=== PATIENT | male | born 1935 | race Caucasian/White ===

== ENCOUNTER 2016-09-12 16:53 | Inpatient (IN) | payer MEDICARE ==
[2016-09-12] VITALS (10 sets, daily range): BP systolic 88–108; BP diastolic 62–83
[~2016-09-12] VITALS: Ht 182.9 cm; Wt 65.8 kg
[~2016-09-12 16:53] MED LIST: ALFU10TA PO; ALFUZOSIN HCL PO; ASPI-983 PO; ASPI325T32 PO; BENZ-13 PO; BETH25TA PO; DICL100G13 TOP; DILT180C84 PO; DILT240C90 PO; DOXA4TAB2 PO; DXZS2T PO; DXZS4T PO; FRSM40T PO; FURO-125 PO; FURO40TA4 PO; Glycerin PR; HALO2TAB12 PO; KCL20TCR PO; MELA3TAB PO; METO-274 PO; Metoprolol Succinate PO; NAPR220C11 PO; NFD60TCR; POLY17PO6 PO; POTA-51 PO; POTA20TA8 PO; Polyethylene Glycol PO; RIVA20TA PO; RIVA20TA2 PO; WARF2TAB PO; WARF5TAB58 PO
--- OUTSIDE RECORDS SUMMARY | 2016-09-12 16:57 | XMS REPORT | Continuity of Care Document ---
Author Author [facility] Organization [facility] Address Unknown Phone Unavailable Care Team Providers Care Sand Operator Name Role Phone THA WALSH MD PCP Insurance Providers Payer Name Policy Number Subscriber Name Relationship Wps Medicare [id number] Lara Buckley 19 Self / Same As Patient Blue Cross [facility] Supp [id number] Lara Buckley Self / Same As Patient Advance Directives Directive Response Recorded Date/Time Advance Directives Yes 03/19/16 3:00pm Health Care Power of Ethylene Plant Helper Yes 03/19/16 3:00pm Organ Donor No 03/19/16 3:00pm Resuscitation Status Full Code 03/19/16 3:00pm Chief Complaint and Reason for Visit Chief Complaint Respiratory Problems Reason for Visit atrial fibrillation recurrent pleural effusion, right Problems Active Problems Medical Problem Onset Date Status Anticoagulant long-term use Unknown Chronic Atrial fibrillation Unknown Acute Atrial fibrillation with rapid ventricular response Unknown Acute BPH (benign prostatic hypertrophy) 03/22/2015 Chronic Hypertension Unknown Chronic Noncompliance with medication treatment due to underuse of medication Unknown Acute Pleural effusion, right Unknown Acute Subtherapeutic international normalized ratio (INR) Unknown Chronic UTI (urinary tract infection) Unknown Acute Urinary incontinence Unknown Acute Urinary incontinence Unknown Acute Urinary retention with incomplete bladder emptying Unknown Acute Urinary tract infectious disease Unknown Acute Volume overload Unknown Resolved Weakness Unknown Acute Medications Current Home Medications Medication Dose Units Route Directions Days/Qty Instructions Start Date Rivaroxaban 20 Mg 20 Mg Oral Daily@1700 30 03/11/16 Diltiazem Hcl 240 Mg 240 Mg Oral Daily 30 03/11/16 Benzonatate 100 Mg 100 Mg Oral Twice A Day as needed for Cough 20 03/28 Furosemide 20 Mg 20 Mg Oral Daily 03/19/16 Past Home Medications Medication Directions Ordered Status Nifedipine 60 Mg Tab, 11/16/06 Discontinued Naproxen Sodium 220 Mg Capsule, 220 Mg Oral Daily as needed for Pain Discontinued [Alfuzosin Hcl] 10 Mg Tab, 10 Mg Oral Daily@18 03/22/15 Discontinued Diclofenac Sod 100 Gm Gel, 0 Gm Topically Give Every 6 Hr On Schedule as needed for Pain 03/22/15 Discontinued Doxazosin Mesylate 2 Mg Tab, 2 Mg Oral Every 6 Hours as needed for Systolic Blood Pressure >170 03/22/15 Discontinued Doxazosin Mesylate 4 Mg Tab, 4 Mg Oral Bedtime 03/22/15 Discontinued Furosemide 40 Mg Tab, 40 Mg Oral Daily 03/22/15 Discontinued [Glycerin] 1 Ea Supp, 1 Ea Rectal 0730 03/22/15 Discontinued Haloperidol 2 Mg Tablet, 3 Mg Oral Bedtime as needed for Insomnia 03/22/15 Discontinued [Metoprolol Succinate] 100 Mg Tab, 100 Mg Oral Daily 03/22/15 Discontinued [Polyethylene Glycol] 17 Gm Pack, 17 Gm Oral Bedtime 03/22/15 Discontinued Potassium Chloride 20 Meq Tab, 40 Meq Oral Daily@0700 03/22/15 Discontinued Rivaroxaban 20 Mg Tablet, 20 Mg Oral Daily@1700 03/22/15 Discontinued Warfarin Sodium 5 Mg Tablet, 5 Mg Oral Daily 04/08/15 Discontinued Doxazosin Mesylate 4 Mg Tablet, 4 Mg Oral Bedtime 04/29/15 Discontinued Furosemide 40 Mg Tablet, 40 Mg Oral Daily 04/29/15 Discontinued Metoprolol Succinate 100 Mg Tab.er.24h, 100 Mg Oral Daily 04/29/15 Discontinued Polyethylene Glycol 3350 17 Gm Powd.pack, 17 Gm Oral Daily as needed for Constipation 04/29/15 Discontinued Potassium Chloride 20 Meq Tablet.er, 40 Meq Oral Daily @ 0704/29/15 Discontinued Bethanechol Chloride 25 Mg Tablet, 25 Mg Oral Four Times Daily 04/29/15 Discontinued Alfuzosin Hcl 10 Mg Tab.sr.24h, 10 Mg Oral Daily @ 1800 04/29/15 Discontinued Warfarin Sodium 2 Mg Tablet, 4 Mg Oral Daily@1800 05/03/15 Discontinued Diltiazem Hcl 180 Mg Cap.er.24h, 180 Mg Oral Daily 05/03/15 Discontinued Aspirin 81 Mg Tablet.dr 81 Mg Oral Bedtime 03/03/16 Discontinued Social History Social History Problem Response Recorded Date/Time Alcohol Use Denies Use 03/19/2016 3:00pm Recreational Drug Use No 03/19/2016 3:00pm Recent Foreign Travel No 03/19/2016 3:00pm Recent Infectious Disease Exposure No 03/19/2016 3:00pm Hospitalization with Isolation Denies 03/19/2016 3:00pm Sexually Transmitted Disease No 03/19/2016 3:00pm HIV/AIDS No 03/19/2016 3:00pm Smoking Status Former Smoker 03/19/2016 3:00pm Do you dip or chew tobacco? No 03/19/2016 3:00pm Query Response Start Date Stop Date Smoking Status Former Smoker 09/13/1984 Hospital Discharge Instructions No hospital discharge instructions. Plan of Care Discharge Date 03/19/16 5:35pm Disposition 01 HOME, SELF-CARE Condition at Discharge Stable/Unchanged Instructions/Education Provided Pleural Effusion (ED) Prescriptions See Medication Section Referrals THA WALSH MD - Primary Care Physician Additional Instructions/Education All discharge instructions reviewed with patient and/or family. Voiced understanding. Take Tessalon pearls twice daily to control cough Make appointment for follow-up at Dr. Walsh's office next week Take Lasix 20 mg daily Functional Status No functional status results. Allergies, Adverse Reactions, Alerts Allergen Type Severity Reaction Status Last Updated NKANo Known Allergies Allergy Unknown Active 11/16/06 Immunizations Name Given Type Hepatitis A No Historical Hepatitis B No Historical Tetanus Booster (TDap) More than 5yrs Historical Vital Signs Acute Vital Signs Vital Response Date/Time Temperature (Fahrenheit) 99.4 degrees F (97.6 - 99.5) 03/19/2016 5:35pm Temperature (Calculated Celsius) 37.98077 degrees C (36.4 - 37.5) 03/19/2016 5:35pm Temperature Source Temporal 03/19/2016 5:35pm Pulse Rate (adult) 80 bpm (60 - 90) 03/19/2016 5:35pm Respiratory Rate 16 bpm (12 - 24) 03/19/2016 5:35pm O2 Sat by Pulse Oximetry 100 % (88 - 100) 03/19/2016 5:35pm Blood Pressure 138/89 mm Hg 03/19/2016 5:35pm Blood Pressure Mean 112 mm Hg 03/19/2016 3:00pm Pain Numeric Pain Scale 0-No Pain 03/19/2016 5:35pm Pain Intensity 0 03/09/2016 4:08pm Height (Feet) 6 feet 03/19/2016 3:00pm Height (Inches) 0.00 inches 03/19/2016 3:00pm Height (Calculated Centimeters) 182.712611 cm 03/19/2016 3:00pm Weight (Pounds) 169 pounds 03/19/2016 3:00pm Weight (Ounces) 0.8 oz 03/19/2016 3:00pm Weight (Calculated Grams) 74608.791 gm 03/19/2016 3:00pm Weight (Calculated Kilograms) 76.856818 kilograms 03/19/2016 3:00pm Calculated BMI 25.5 03/19/2016 3:00pm Results Laboratory Results Test Name Result Units Flags Reference Collection Date/Time Result Date/ Time Comments White Blood Count 6.9 10^3/uL 4.3-11.0 03/06/2016 5:43am 03/06/2016 6: 06am Red Blood Count 4.09 10^6/uL L 4.35-5.85 03/06/2016 5:43am 03/06/2016 6: 06am Hemoglobin 13.9 G/DL 13.3-17.7 03/06/2016 5:43am 03/06/2016 6:06am Hematocrit 39 % L 40-54 03/06/2016 5:43am 03/06/2016 6:06am Mean Corpuscular Volume 95 FL 80-99 03/06/2016 5:43am 03/06/2016 6: 06am Mean Corpuscular Hemoglobin 34 PG 25-34 03/06/2016 5:43am 03/06/2016 6: 06am Mean Corpuscular Hemoglobin Concent 36 G/DL 32-36 03/06/2016 5:43am 6:06am Red Cell Distribution Width 12.8 % 10.0-14.5 03/06/2016 5:43am 2015 6:06am Platelet Count 145 10^3/uL 130-400 03/06/2016 5:43am 03/06/2016 6:06am Mean Platelet Volume 10.6 FL H 7.4-10.4 03/06/2016 5:4303/06/2016 6: 06am Neutrophils (%) (Auto) 80 % H 42-75 03/06/2016 5:4303/06/2016 6:06am Lymphocytes (%) (Auto) 12 % 12-44 03/06/2016 5:4303/06/2016 6:06am Monocytes (%) (Auto) 8 % 0-12 03/06/2016 5:4303/06/2016 6:06am Eosinophils (%) (Auto) 1 % 0-10 03/06/2016 5:4303/06/2016 6:06am Basophils (%) (Auto) 0 % 0-10 03/06/2016 5:4303/06/2016 6:06am Neutrophils # (Auto) 5.6 X 10^3 1.8-7.8 03/06/2016 5:4303/06/2016 6: 06am Lymphocytes # (Auto) 0.8 X 10^3 L 1.0-4.0 03/06/2016 5:4303/06/2016 6: 06am Monocytes # (Auto) 0.5 X 10^3 0.0-1.0 03/06/2016 5:4303/06/2016 6: 06am Eosinophils # (Auto) 0.1 10^3/uL 0.0-0.3 03/06/2016 5:4303/06/2016 6 :06am Basophils # (Auto) 0.0 10^3/uL 0.0-0.1 03/06/2016 5:4303/06/2016 6: 06am Prothrombin Time 14.7 SEC 12.2-14.7 03/03/2016 11:07am 03/03/2016 11: 30am INR Comment 1.2 0.8-1.4 03/03/2016 11:07am 03/03/2016 11:30am INTERPRETIVE DATA SUGGESTED THERAPEUTIC RANGE FOR INR'S: VENOUS THROMBOSIS, PULMONARY EMBOLISM, OR PREVENTION OF SYSTEMIC EMBOLISM (EG. IN ATRIAL FIBRILLATION): 2.0 - 3.0 MECHANICAL PROSTHETIC HEART VALVES: 2.5 - 3.5* *NOTE: INR'S UP TO 4.5 MAY BE NECESSARY IN SELECTED GROUPS OF HIGH RISK PATIENTS. S[employer] CONSENSUS CONFERENCE ON ANTITHROMBOTIC THERAPY (2000). Activated Partial Thromboplast Time 30 SEC 24-35 03/03/2016 11:07am 11:30am D-Dimer 2.94 UG/ML H 0.00-0.49 03/03/2016 11:07am 03/03/2016 11:30am Urine Color YELLOW 03/03/2016 11:55am 03/03/2016 12:10pm Urine Clarity CLEAR 03/03/2016 11:55am 03/03/2016 12:10pm Urine pH 6 5-9 03/03/2016 11:55am 03/03/2016 12:10pm Urine Specific Spencer 1.010 * 1.016-1.022 03/03/2016 11:55am 2015 12:10pm Urine Protein 2+ * NEGATIVE 03/03/2016 11:55am 03/03/2016 12:10pm Urine Glucose (UA) NEGATIVE NEGATIVE 03/03/2016 11:55am 03/03/2016 12 :10pm Urine RBC (Auto) 1+ * NEGATIVE 03/03/2016 11:55am 03/03/2016 12:10pm Urine Ketones NEGATIVE NEGATIVE 03/03/2016 11:55am 03/03/2016 12: 10pm Urine Nitrite NEGATIVE NEGATIVE 03/03/2016 11:55am 03/03/2016 12: 10pm Urine Bilirubin NEGATIVE NEGATIVE 03/03/2016 11:55am 03/03/2016 12: 10pm Urine Urobilinogen NORMAL MG/DL NORMAL 03/03/2016 11:55am 03/03/2016 12 :10pm Urine Leukocyte Esterase 3+ * NEGATIVE 03/03/2016 11:55am 03/03/2016 12 :10pm Urine RBC 2-5 /HPF * 03/03/2016 11:55am 03/03/2016 12:10pm Urine WBC 25-50 /HPF * 03/03/2016 11:55am 03/03/2016 12:10pm Urine Bacteria TRACE /HPF 03/03/2016 11:55am 03/03/2016 12:10pm Urine Squamous Epithelial Cells 0-2 /HPF 03/03/2016 11:55am 2015 12:10pm Urine Crystals NONE /LPF 03/03/2016 11:55am 03/03/2016 12:10pm Urine Casts NONE /LPF 03/03/2016 11:55am 03/03/2016 12:10pm Urine Mucus NEGATIVE /LPF 03/03/2016 11:55am 03/03/2016 12:10pm Urine Culture Indicated YES 03/03/2016 11:55am 03/03/2016 12:10pm Sodium Level 131 MMOL/L L 135-145 03/06/2016 5:43am 03/06/2016 6:20am Potassium Level 4.0 MMOL/L 3.6-5.0 03/06/2016 5:43am 03/06/2016 6:20am Chloride Level 98 MMOL/L 98-107 03/06/2016 5:43am 03/06/2016 6:20am Carbon Dioxide Level 26 MMOL/L 21-32 03/06/2016 5:43am 03/06/2016 6: 20am Anion Gap 7 MMOL/L 5-14 03/06/2016 5:43am 03/06/2016 6:20am Blood Urea Nitrogen 8 MG/DL 7-18 03/06/2016 5:43am 03/06/2016 6:20am Creatinine 1.00 MG/DL 0.60-1.30 03/06/2016 5:43am 03/06/2016 6:20am BUN/Creatinine Ratio 8 03/06/2016 5:43am 03/06/2016 6:20am Estimat Glomerular Filtration Rate > 60 03/06/2016 5:43am 2015 6:20am GFR INTERPRETIVE DATA UNITS FOR ESTIMATED GFR (eGFR): mL/min/1.73 M2 REFERENCE RANGE FOR ESTIMATED GFR (eGFR) eGFR NORMAL eGFR >60 MODERATELY DECREASED eGFR 30-59 SEVERLY DECREASED eGFR 15-29 KIDNEY FAILURE <15 (OR DIALYSIS) Glucose Level 120 MG/DL H 70-105 03/06/2016 5:43am 03/06/2016 6:20am Glucometer 139 MG/DL H 70-110 03/04/2016 12:24am 03/04/2016 12:41am Calcium Level 8.5 MG/DL 8.5-10.1 03/06/2016 5:43am 03/06/2016 6:20am Phosphorus Level 3.1 MG/DL 2.3-4.7 03/06/2016 5:43am 03/06/2016 6:20am Magnesium Level 1.7 MG/DL L 1.8-2.4 03/06/2016 5:43am 03/06/2016 6:20am Total Bilirubin 1.6 MG/DL H 0.1-1.0 03/06/2016 5:43am 03/06/2016 6:20am Alkaline Phosphatase 80 U/L 40-136 03/06/2016 5:43am 03/06/2016 6:20am Aspartate Amino Transf (AST/SGOT) 27 U/L 5-34 03/06/2016 5:43am 2015 6:20am Alanine Aminotransferase (ALT/SGPT) 14 U/L 0-55 03/06/2016 5:43am 03/06 6:20am Troponin I < 0.30 NG/ML <0.30 03/03/2016 11:07am 03/03/2016 11:41am Total Protein 6.5 G/DL 6.4-8.2 03/06/2016 5:43am 03/06/2016 6:20am Albumin 3.5 G/DL 3.2-4.5 03/06/2016 5:43am 03/06/2016 6:20am Thyroid Stimulating Hormone (TSH) 1.73 UIU/ML 0.35-4.94 03/04/2016 4: 50am 03/04/2016 5:46am Body Fluid Source THORA 03/05/2016 8:15am 03/05/2016 10:14am Body Fluid Color YELLOW 03/05/2016 8:15am 03/05/2016 10:14am Body Fluid Appearance SLT CLDY 03/05/2016 8:15am 03/05/2016 10: 14am Body Fluid WBC 970 /uL 03/05/2016 8:15am 03/05/2016 10:14am Body Fluid RBC 550 /uL 03/05/2016 8:15am 03/05/2016 10:14am Body Fluid Polynuclear WBCs 0 % 03/05/2016 8:15am 03/05/2016 10:14am Body Fluid Mononuclear WBCs 2 % 03/05/2016 8:15am 03/05/2016 10:14am Body Fluid Lymphocytes 17 % 03/05/2016 8:15am 03/05/2016 10:14am Body Fluid Other Cells 81 % 03/05/2016 8:15am 03/05/2016 10:14am Body Fluid Glucose 107 MG/DL 03/05/2016 8:15am 03/05/2016 9:02am BODY FLUID SOURCE THORACENTESIS. Body Fluid Total Protein 3.0 G/DL 03/05/2016 8:15am 03/05/2016 9: 02am BODY FLUID SOURCE THORACENTESIS. Body Fluid Lactate Dehydrogenase 78 U/L 03/05/2016 8:15am 03/05/2016 9:02am BODY FLUID SOURCE THORACENTESIS. Pending Laboratory Results Test Name Collection Date/Time Microbiology Results Procedure Source Result Collection Date/Time Result Date/Time Urine Culture Urine, Clean Catch ENTEROCOCCUS FAECALIS 03/03/2016 11:55am 03/05/2016 7:45am Body Fluid Culture Thoracentesis Fluid No growth 03/05/2016 8:15am 2015 9:26am Pending Microbiology Results Procedure Source Collection Date/Time Procedures Procedure Status Date Provider(s) DRAINAGE OF RIGHT PLEURAL CAVITY, PERCUTANEOUS APPROACH Completed 03/05/16 JOSELUIS RG DO Tracing only of electrocardiogram Completed 03/03/16 TALISHA MORALES MD Color Doppler echocardiography Active 03/03/16 HÉCTOR TODD Encounters Encounter Location Arrival/Admit Date Discharge/Depart Date Attending Provider Departed Emergency Room [facility] 03/19/16 2:51pm 03/19 5:35pm CORRINE LAFLEUR MD Discharged Inpatient [facility] 03/06/16 11:16am 4:39pm THA WALSH MD Discharged Inpatient [facility] 03/03/16 3:14pm 11:15am THA WALSH MD Recent Diagnosis
[2016-09-12 17:35] LABS: BASOPHILS % (AUTO) 0 % (0-10); EOSINOPHILS # (AUTO) 0.1 10^3/uL (0.0-0.3); EOSINOPHILS % (AUTO) 1 % (0-10); LYMPHOCYTES # (AUTO) 1.9 X 10^3 (1.0-4.0); LYMPHOCYTES % (AUTO) 15 % (12-44); MEAN CORPUSCULAR HEMOGLOBIN 32 PG (25-34); MEAN CORPUSCULAR HGB CONC 36 G/DL (32-36); MEAN CORPUSCULAR VOLUME 91 FL (80-99); MEAN PLATELET VOLUME 9.6 FL (7.4-10.4); MONOCYTES # (AUTO) 0.9 X 10^3 (0.0-1.0); MONOCYTES % (AUTO) 7 % (0-12); NEUTROPHILS # (AUTO) 9.7 X 10^3 (1.8-7.8); NEUTROPHILS % (AUTO) 77 % (42-75); PLATELET COUNT 236 10^3/uL (130-400); RED BLOOD COUNT 3.44 10^6/uL (4.35-5.85); RED CELL DISTRIBUTION WIDTH 14.2 % (10.0-14.5); WHITE BLOOD COUNT 12.5 10^3/uL (4.3-11.0)
[2016-09-12 17:50] LABS: ALANINE AMINOTRANSFERASE 21 U/L (0-55); ALBUMIN 2.3 G/DL (3.2-4.5); ANION GAP 12 MMOL/L (5-14); ASPARTATE AMINO TRANSFERASE 61 U/L (5-34); BILIRUBIN,TOTAL 1.1 MG/DL (0.1-1.0); BLOOD UREA NITROGEN 18 MG/DL (7-18); BUN/CREATININE RATIO 18; CALCIUM 7.4 MG/DL (8.5-10.1); CARBON DIOXIDE 23 MMOL/L (21-32); CHLORIDE 89 MMOL/L (98-107); GFR ESTIMATED > 60; GLUCOSE 120 MG/DL (70-105); POTASSIUM 3.8 MMOL/L (3.6-5.0)
[2016-09-12 17:51] LABS: SODIUM 124 MMOL/L (135-145)
[2016-09-12 17:57] LABS: TROPONIN I 0.51 NG/ML (<0.30)
[2016-09-12] MEDS ORDERED: ASPIRIN 81 MG CHEW (CHILDREN'S ASA) PO ONE (18:00)
--- NOTE | 2016-09-12 18:08 | Diagnostic Imaging Report ---
INDICATION: Weakness. COMPARISON: 05/04/2016. FINDINGS: Upright portable view of the chest is obtained. Heart size is upper limits of normal but unchanged. The pulmonary vessels do not appear congested. There is no pneumothorax. There is persistent pleural fluid and airspace disease at the right lung base, moderately improved from the prior study. The complex multiloculated appearance also appears improved. There may be a trace left pleural effusion now present. The upper lungs remain clear. IMPRESSION: Improved but persistent small right pleural effusion with a slightly complex appearance. Possible new trace left pleural effusion. Dictated by: Dictated on workstation # [id number]
--- NOTE | 2016-09-12 18:37 | ED General ---
General Chief Complaint: General Problems/Pain Stated Complaint: WEAKNESS Nursing Triage Note: PT BROUGHT IN BY [facility] WITH C/O GENERALIZED WEAKNESS. PT IS A&O X 4 UPON ARRIVAL. HE REPORTS FEELING "TIRED AND WEAK". Nursing Sepsis Screen: No Definite Risk Source of Information: Patient Exam Limitations: No Limitations History of Present Illness Time Seen by Provider: 18:35 Initial Comments To ER per ambulance from home with reports of generalized weakness for the past 3-4 days. He has history of multiple admissions for congestive heart failure and hyponatremia as well as alcoholism. During his last admission in April hospice was considered but did not wish to pursue hospice or home health. He denies chest pain or shortness of breath. States that he drinks too many glasses of water at home daily to count because his mouth is always dry. Timing/Duration: 2-3 Days Severity: Moderate Associated Systoms: Malaise Weakness Allergies and Home Medications Allergies Coded Allergies: NKANo Known Allergies (Verified Allergy, Unknown, 11/16/06) Home Medications Aspirin 325 Mg Tablet.dr 325 MG PO DAILY (Reported) Furosemide 40 Mg Tablet #30 80 MG PO DAILY Prescribed by: THA FRAGA on 05/05/16 0936 Melatonin 3 Mg Tablet #30 9 MG PO HS PRN PRN INSOMNIA Prescribed by: THA FRAGA on 05/05/16 0936 Potassium Chloride 20 Meq Tab.er.prt #30 20 MEQ PO DAILY@0700 Prescribed by: THA FRAGA on 05/05/16 0936 Constitutional: see HPI weakness (r) EENTM: see HPI Respiratory: no symptoms reported Cardiovascular: no symptoms reportedNo chest pain, edemaNo Hx of Intervention , No palpitations, No syncope, No vascular heart diseas Genitourinary: no symptoms reported Musculoskeletal: no symptoms reported Skin: no symptoms reported Psychiatric/Neurological: No Symptoms Reported Hematologic/Lymphatic: No Symptoms Reported Past Kydpnte-Apebbl-Wdrcdn Hx Patient Social History Alcohol Use: Denies Use Recreational Drug Use: No Smoking Status: Former Smoker Former Smoker/When Quit: Sep 13, 1984 2nd Hand Smoke Exposure: No Recent Foreign Travel: No Contact w/Someone Who Travel: No Recent Infectious Disease Expo: No Recent Hopitalizations: Yes Physical Abuse Screen: No Sexual Abuse: No Immunizations Up To Date Tetanus Booster (TDap): More than 5yrs PED Vaccines UTD: Yes Seasonal Allergies Seasonal Allergies: No Surgeries HX Surgeries: Yes (BILAT KNEE REPLACEMENT, VASECTOMY) Surgeries: Orthopedic, Vasectomy Respiratory Hx Respiratory Disorders: No Cardiovascular Hx Cardiac Disorders: Yes (CHF, afib , CHRONIC DIZZINESS ) Cardiac Disorders: Atrial Fibrillation, Chronic Edema/Swelling, Hypertension Neurological Hx Neurological Disorders: No Reproductive System Hx Reproductive Disorders: No Sexually Transmitted Disease: No HIV/AIDS: No Genitourinary Hx Genitourinary Disorders: Yes (PHIMOSIS, INCONT of URINE ) Genitourinary Disorders: Benign Prostatic Hyperpl, Prostate Problems, Bladder Infection Gastrointestinal Hx Gastrointestinal Disorders: Yes (INCONT OF STOOL) Gastrointestinal Disorders: Gastroesophageal Reflux, Chronic Constipation, Chronic Diarrhea Musculoskeletal Hx Musculoskeletal Disorders: Yes (L-S SPONDYLOSIS , CHRONIC BACK PAIN/HEAD/ NECK/HIP,) Musculoskeletal Disorders: Degenerate Disk Disease, Arthritis, Chronic Back Pain, Fractures Endocrine Hx Endocrine Disorders: No HEENT HX ENT Disorders: Yes Loss of Vision: Denies Hearing Impairment: Denies Cancer Hx Cancer: No (Denies cancer hx ) Cancer: Skin Psychosocial Hx Psychiatric Problems: Yes Behavioral Health Disorders: Sleep Difficulties Integumentary HX Skin/Integumentary Disorder: Yes (Left buttock ulcer ) Skin/Integumentary Disorders: Recent Skin Changes Blood Transfusions Hx Blood Disorders: No Adverse Reaction to a Blood Tr: No Family Medical History Significant Family History: Heart Disease, CAD Over 55 Years Old, Hypertension Family Medial History: Myocardial infarction 19 FATHER 19 MOTHER Physical Exam Vital Signs Vital Sign - Last 12Hours 09/12/16 17:07 Temp 96.8 Pulse 101 Resp 16 B/P 110/75 Pulse Ox 97 O2 Delivery Room Air Capillary Refill : Less Than 3 Seconds General Appearance: No Apparent Distress WD/WN Chronically ill Eyes: Bilateral Eye EOMI, Bilateral Eye Normal Inspection, Bilateral Eye PERRL HEENT: PERRL/EOMI TMs Normal Other (Slight left facial droop. ) Neck: Full Range of Motion Normal Inspection Respiratory: Lungs Clear Normal Breath Sounds No Accessory Muscle Use No Respiratory Distress Cardiovascular: Irregularly Irregular Gastrointestinal: Normal Bowel Sounds Non Tender Soft Extremity: Normal Capillary Refill Normal Inspection Pedal Edema (+2 bilateral lower extremities) Neurologic/Psychiatric: Alert Oriented x3 No Motor/Sensory Deficits Skin: Normal Color Warm/Dry Progress/Results/Core Measures Results/Orders Lab Results Laboratory Tests Test 09/12/16 16:55 Range/Units Alanine Aminotransferase (ALT/SGPT) 21 0-55 U/L Albumin 2.3 L 3.2-4.5 G/DL Alkaline Phosphatase 94 40-136 U/L Anion Gap 12 5-14 MMOL/L Aspartate Amino Transf (AST/SGOT) 61 H 5-34 U/L B-Type Natriuretic Peptide 244.5 H <100.0 PG/ML BUN/Creatinine Ratio 18 Basophils # (Auto) 0.0 0.0-0.1 10^3/uL Basophils (%) (Auto) 0 0-10 % Blood Urea Nitrogen 18 7-18 MG/DL Calcium Level 7.4 L 8.5-10.1 MG/DL Carbon Dioxide Level 23 21-32 MMOL/L Chloride Level 89 L 98-107 MMOL/L Creatinine 1.00 0.60-1.30 MG/DL Eosinophils # (Auto) 0.1 0.0-0.3 10^3/uL Eosinophils (%) (Auto) 1 0-10 % Estimat Glomerular Filtration Rate > 60 Glucose Level 120 H 70-105 MG/DL Hematocrit 31 L 40-54 % Hemoglobin 11.1 L 13.3-17.7 G/DL Lymphocytes # (Auto) 1.9 1.0-4.0 X 10^3 Lymphocytes (%) (Auto) 15 12-44 % Mean Corpuscular Hemoglobin 32 25-34 PG Mean Corpuscular Hemoglobin Concent 36 32-36 G/DL Mean Corpuscular Volume 91 80-99 FL Mean Platelet Volume 9.6 7.4-10.4 FL Monocytes # (Auto) 0.9 0.0-1.0 X 10^3 Monocytes (%) (Auto) 7 0-12 % Neutrophils # (Auto) 9.7 H 1.8-7.8 X 10^3 Neutrophils (%) (Auto) 77 H 42-75 % Platelet Count 236 130-400 10^3/uL Potassium Level 3.8 3.6-5.0 MMOL/L Red Blood Count 3.44 L 4.35-5.85 10^6/uL Red Cell Distribution Width 14.2 10.0-14.5 % Serum Alcohol < 10 <10 MG/DL Sodium Level 124 *L 135-145 MMOL/L Total Bilirubin 1.1 H 0.1-1.0 MG/DL Total Protein 5.0 L 6.4-8.2 G/DL Troponin I 0.51 *H <0.30 NG/ML White Blood Count 12.5 H 4.3-11.0 10^3/uL My Orders Orders-WAYLON MATIAS APRN Cbc With Automated Diff (09/12/16 17:31) Comprehensive Metabolic Panel (09/12/16 17:31) Ua Culture If Indicated (09/12/16 17:31) Chest 1 View, Ap/Pa Only (09/12/16 17:31) Saline Lock/Iv-Start (09/12/16 17:31) Troponin I (09/12/16 17:31) Ekg Tracing (09/12/16 17:31) BNP (09/12/16 17:32) Aspirin Chewable Tablet (Baby Aspirin Ch (09/12/16 18:00) Alcohol (09/12/16 18:01) Medications Given in ED Current Medications Medications Dose Ordered Sig/Jb Route Start Time Stop Time Status Last Admin Dose Admin Aspirin 324 mg ONCE ONCE PO 09/12/16 18:00 09/12/16 18:01 DC 09/12/16 18:05 324 MG Vital Signs/I&O Vital Sign - Last 12Hours 09/12/16 17:07 Temp 96.8 Pulse 101 Resp 16 B/P 110/75 Pulse Ox 97 O2 Delivery Room Air Blood Pressure Mean: 87 Departure Communication Time/Spoke to Admitting Phy: 18:[address] Blackman. We will admit the patient with free water restriction to 1500 mL daily, Lovenox and cardiology consult Progress Notes 1901- his is now present in the room and reports that he has had some difficulty with left facial droop for about a week. He moves all extremities. reports that he is DO NOT RESUSCITATE status. She states that he does drink one high ball (whiskey/Pepsi about 30-60 mL of whiskey) nightly most recently last night. He is not on anticoagulation and does have a history of atrial fibrillation which is currently and so stroke is very likely. He is demented. I have advised the daughter and that he is nearing the end of his life though it is not in the immediate future such as overnight tonight, however, they should prepare for his passing in the fairly near future and both are understanding of this. . Impression Impression: Primary Impression: Atrial fibrillation Additional Impressions: Weakness Hyponatremia Congestive heart failure Disposition: ADMITTED INPATIENT Condition: Stable Decision to Admit Reason: Admit from ER (General) Decision to Admit/Date: Sep 12, 2016 Time/Decision to Admit Time: 18:37 Departure-Patient Inst. Referrals: THA FRAGA MD (PCP/Family) Primary Care Physician WAYLON MATIAS APRN Sep 12, 2016 18:37
[2016-09-12] MEDS ORDERED: NS IV 1000 ML 1,000 ML ONE (19:24)
--- NOTE | 2016-09-12 19:29 | Diagnostic Imaging Report ---
INDICATION: Right-sided weakness. Possible stroke. PROCEDURE: Unenhanced helical CT imaging of the brain was performed. COMPARISON: 03/03/2016 FINDINGS: No acute intracranial hemorrhage, mass effect or edema is seen. The nuñez-white junction appears preserved. There is diffuse atrophy similar to the prior study. The ventricles are prominent but proportionate to the degree of atrophy. Moderate hypodensities in the periventricular and subcortical white matter appear similar to the prior study and are likely related to chronic microvascular ischemic change. A small focal acute lesion would be difficult to exclude on this background. No acute focal lesion is suspected, however. The paranasal sinuses and mastoids are clear as visualized. IMPRESSION: Chronic white matter changes similar to the prior exam. No new or acute abnormality is suspected. If clinical concern for stroke persists, MRI may be of additional benefit. Dictated by: Dictated on workstation # [id number]
[2016-09-12] MEDS ORDERED: FUROSEMIDE 40 MG/4 ML INJ (LASIX) ONE (20:39)
[2016-09-12] MEDS ORDERED: ENOXAPARIN 80 MG/0.8 ML (LOVENOX) SYR ONE (20:40)
[2016-09-12 20:50] LABS: BILIRUBIN,URINE NEGATIVE (NEGATIVE); KETONES,URINE NEGATIVE (NEGATIVE); LEUKOCYTE ESTERASE ,URINE 3+ (NEGATIVE); NITRITE,URINE NEGATIVE (NEGATIVE); PH,URINE 6 (5-9); PROTEIN,URINE NEGATIVE (NEGATIVE); UROBILINOGEN,URINE NORMAL (NORMAL)
[2016-09-12] MEDS ORDERED: RT-ALBUTEROL SULF 2.5 MG/3 ML PRE-MIX VIAL INH PRN (21:00)
[2016-09-12 21:14] LABS: WBC,URINE 50-100 /HPF
[2016-09-12 21:15] LABS: HYALINE CASTS, URINE RARE /LPF; RENAL EPITHELIAL CELLS,URINE 0-2 /HPF
[2016-09-12] MEDS: NS IV 1000 ML 1,000 ML IV SCH (21:52)
[2016-09-12] MEDS ORDERED: NORMAL SALINE (BAXTER MINI) 50 ML IV ONE (22:00)
[2016-09-12] MEDS ORDERED: cefTRIAXone 1 GM (ROCEPHIN) VIAL ONE (22:00)
[2016-09-13] VITALS (20 sets, daily range): BP systolic 80–104; BP diastolic 47–68
[2016-09-13 04:30] LABS: ANION GAP 13 MMOL/L (5-14); BLOOD UREA NITROGEN 20 MG/DL (7-18); BUN/CREATININE RATIO 20; CALCIUM 7.1 MG/DL (8.5-10.1); CARBON DIOXIDE 20 MMOL/L (21-32); CHLORIDE 94 MMOL/L (98-107); CREATININE SERUM 1.02 MG/DL (0.60-1.30); GFR ESTIMATED > 60; GLUCOSE 106 MG/DL (70-105); POTASSIUM 3.8 MMOL/L (3.6-5.0); SODIUM 127 MMOL/L (135-145)
[2016-09-13] MEDS: FUROSEMIDE 40 MG/4 ML INJ (LASIX) IV SCH (06:10)
[2016-09-13] MEDS ORDERED: FLU TRIvalent (5 YOA+) 2016-17 (AFLURIA) 0.5 ML IM ONE (08:30)
--- NOTE | 2016-09-13 08:38 | History & Physicial ---
History of Present Illness History of Present Illness Reason for visit/HPI patient was brought to the emergency room by EMS. Patient complains of being tired and weak. Patient has a history of atrial fibrillation. Patient also states he has Alzheimer's. Patient does not know the transport coordinator and today's date Patient has an elevated troponin Patient also has of breakdown in his coccyx Date of Admission Sep 12, 2016 at 18:34 I consulted on this patient on 09/13/16 08:34 Attending Physician Tah Walsh MD Admitting Physician Tha Walsh MD Consult Allergies and Home Medications Allergies Coded Allergies: NKANo Known Allergies (Verified Allergy, Unknown, 11/16/06) Home Medications Aspirin 325 Mg Tablet.dr 325 MG PO DAILY (Reported) Furosemide 40 Mg Tablet #30 80 MG PO DAILY Prescribed by: THA WALSH on 05/05/16 0936 Melatonin 3 Mg Tablet #30 9 MG PO HS PRN PRN INSOMNIA Prescribed by: THA WALSH on 05/05/16 0936 Potassium Chloride 20 Meq Tab.er.prt #30 20 MEQ PO DAILY@0700 Prescribed by: THA WALSH on 05/05/16 0936 Past Qtgunwu-Lfatei-Ompbqo Hx Patient Social History Marrital Status: Employed/Student: unemployed Alcohol Use: Denies Use Recreational Drug Use: No Smoking Status: Former Smoker Former smoker/When Quit: Sep 13, 1984 2nd Hand Smoke Exposure: No Physical Abuse Screen: No Sexual Abuse: No Recent Foreign Travel: No Contact w/other who traveled: No Recent Hopitalizations: Yes Recent Infectious Disease Expo: No Immunizations Up To Date Tetanus Booster (TDap): More than 5yrs Seasonal Allergies Seasonal Allergies: No Surgeries HX Surgeries: Yes (BILAT KNEE REPLACEMENT, VASECTOMY) Surgeries: Orthopedic, Vasectomy Respiratory Hx Respiratory Disorders: No Cardiovascular Hx Cardiovascular Disorders: Yes (CHF, afib , CHRONIC DIZZINESS ) Cardiac Disorders: Atrial Fibrillation, Chronic Edema/Swelling, Hypertension Neurological Hx Neurological Disorders: No Reproductive System Hx Reproductive Disorders: No Sexually Transmitted Disease: No HIV/AIDS: No Genitourinary Hx Genitourinary Disorders: Yes (PHIMOSIS, INCONT of URINE ) Genitourinary Disorders: Benign Prostatic Hyperpl, Prostate Problems, Bladder Infection Gastrointestinal Hx Gastrointestinal Disorders: Yes (INCONT OF STOOL) Gastrointestinal Disorders: Gastroesophageal Reflux, Chronic Constipation, Chronic Diarrhea Musculoskeletal Hx Musculoskeletal Disorders: Yes (L-S SPONDYLOSIS , CHRONIC BACK PAIN/HEAD/ NECK/HIP,) Musculoskeletal Disorders: Degenerate Disk Disease, Arthritis, Chronic Back Pain, Fractures Endocrine Hx Endocrine Disorders: No HEENT HX ENT Disorders: Yes Loss of Vision: Denies Hearing Impairment: Denies Cancer Hx Cancer: No (Denies cancer hx ) Cancer: Skin Psychosocial Hx Psychiatric Problems: Yes Behavioral Health Disorders: Sleep Difficulties Integumentary HX Skin/Integumentary Disorder: Yes Skin/Integumentary Disorders: Recent Skin Changes Blood Transfusions Hx Blood Disorders: No Adverse Reaction to a Blood Tr: No Family Medical History Significant Family History: Heart Disease, CAD Over 55 Years Old, Hypertension Family Hx: Myocardial infarction 19 FATHER 19 MOTHER Constitutional: malaise weakness other (down of coccyx) EENTM: no symptoms reported Respiratory: no symptoms reported Cardiovascular: no symptoms reported Gastrointestinal: no symptoms reported Genitourinary: no symptoms reported Physical Exam Vital Signs Vital Sign - Last 12Hours 09/12/16 17:07 Temp 96.8 Pulse 101 Resp 16 B/P 110/75 Pulse Ox 97 O2 Delivery Room Air Capillary Refill : Less Than 3 Seconds General Appearance: No Apparent Distress Thin Eyes: Bilateral Eye Normal Inspection HEENT: Normal ENT Inspection Neck: Normal Inspection Respiratory: No Accessory Muscle Use No Respiratory Distress Cardiovascular: Irregularly Irregular Gastrointestinal: Non Tender Soft Assessment/Plan Assessment and Plan atrial fibrillation. Elevated troponin. Weakness. Alzheimer's. Hyponatremia. History of CHF Clinical Quality Measures DVT/VTE Risk/Contraindication: Risk Factor Score Per Nursin RFS Level Per Nursing on Admit: 4+=Very High QUE STARR DO Sep 13, 2016 08:38
[2016-09-13] MEDS: ENOXAPARIN 80 MG/0.8 ML (LOVENOX) SYR SC SCH ×2 (10:09→22:40)
[2016-09-13] MEDS ORDERED: DILTIAZEM 100 MG/VIAL (CARDIZEM) ADD-VANTAGE IV ONE (10:41)
[2016-09-13] MEDS ORDERED: SODIUM CHLORIDE (ADD-VANTAGE) 100 ML IV ONE (10:41)
[2016-09-13] MEDS: DILTIAZEM DRIP 100 MG in SODIUM CHLORIDE (ADD-VANTAGE) 100 ML IV SCH (10:54)
--- NOTE | 2016-09-13 11:26 | Progress Note-Standard ---
Standard Progress Note Progress Notes/Assess & Plan Progress/Assessment & Plan 09/13/16:admitted with chronic atrial fibrillation with rapid ventricular rate. On therapeutic doses of Lovenox. Cardizem drip just about to be infused. Asked to see regarding sacral decubitus. Erythema and some necrotic tissue around the sacral region. At this point, would use wound protective agents and use pressure mattress. May require operative debridement soon Final Diagnosis aatrial fibrillation. Sacral decubitus ulcer. DANIELE COX MD Sep 13, 2016 11:26 am
[2016-09-13] MEDS ORDERED: meTOprolol TARTRATE 25 MG (LOPRESSOR) TABLET PO NR (13:15)
--- NOTE | 2016-09-13 13:38 | Consultation-Cardiology ---
HPI-Cardiology Cardiology Consultation: Date of Consultation 09/13/16 Date of Admission Attending Physician Tha Walsh MD Admitting Physician Tha Walsh MD Consulting Physician Cathy RUGGIERO MD HPI: Chief Complaint: Chest pain, sacral ulcer This is a 81-year-old gentleman who presents with chest pain and a sacral ulcer. The patient denies any significant shortness of breath, syncope, near- syncope, palpitations. He has history of atrial fibrillation. Review of Systems-Cardiology Review of Systems Constitutional: No As described under HPI, No no symptoms reported, No chills, No fever, No lightheadedness, No malaise, No tiredness, No weight loss, No weight gain, No other Eyes: No As described under HPI, No no symptoms reported, No blindness, No blurred vision, No contact lenses, No drainage, No decreased acuity, No foreign body sensation, No glasses, No inflammation, No pain, No photophobia, No previous injury, No shadows, No tunnel vision, No other, No vision change Ears/Nose/Throat: No As described under HPI, No no symptoms reported, No chronic hearing loss, No epistaxis, No ear discharge, No ear pain, No loose teeth, No mouth pain, No mouth swelling, No nasal drainage, No nose pain, No recent hearing loss, No throat pain, No throat swelling, No ulcerations, No other Respiratory: No no symptoms reported, No As described under HPI, No cough, No orthopnea, No shortness of breath, No SOB with excertion, No SOB at rest, No stridor, No wheezing, No other Cardiovascular: chest pain palpitations Gastrointestinal: No no symptoms reported, No As described under HPI, No abdomen distended, No abdominal pain, No blood streaked bowels, No constipation , No diarrhea, No difficulty swallowing, No nausea, No poor appetite, No poor fluid intake, No rectal bleeding, No vomiting, No other, No nausea/vomiting/ diarrhea, No stool coloration changes Genitourinary: No no symptoms reported, No As described under HPI, No burning, No dysuria, No discharge, No frequency, No flank pain, No hematuria, No incontinence, No pain, No urgency, No other, No urine frequency changes, No urine coloration changes Musculoskeletal: other (Sacral ulcer) Skin: ulcerations Psychiatric/Neurological: No As described under HPI, No anxiety, No depression , No emotional problems, No focal weakness, No headache, No no symptoms reported , No numbness, No other, No pre-existing deficit, No seizure, No syncope, No tingling, No tremors, No weakness [id number] Hx Patient Social History Marrital Status: Employed/Student: unemployed Alcohol Use: Denies Use Recreational Drug Use: No Smoking Status: Former Smoker Former smoker/When Quit: Sep 13, 1984 2nd Hand Smoke Exposure: No Recent Foreign Travel: No Recent Infectious Disease Expo: No Hospitalization with Isolation: Denies Physical Abuse Screen: No Sexual Abuse: No Immunizations Up To Date Tetanus Booster (TDap): More than 5yrs Past Medical History PMH As described under Assessment. Family Medical History Family Medical History: He reports that his father from an [facility] at age 44. He states his mother had heart disease and at age 80. He states he has no siblings. Family History: Myocardial infarction 19 FATHER 19 MOTHER Allergies and Home Medications Allergies Coded Allergies: YVONNEANo Known Allergies (Verified Allergy, Unknown, 11/16/06) Home Medications Furosemide 40 Mg Tablet #30 80 MG PO DAILY Prescribed by: THA WALSH on 05/05/16 0936 Potassium Chloride 20 Meq Tab.er.prt #30 20 MEQ PO DAILY@0700 Prescribed by: THA WALSH on 05/05/16 0936 Physical Exam-Cardiology Physical Exam Vital Signs/I&O Vital Sign - Last 12Hours 09/13/16 09/13/16 09/13/16 09/13/16 02:00 03:00 04:00 04:00 Pulse 114 121 137 Resp 20 B/P 88/50 93/61 94/59 Pulse Ox 96 96 98 95 O2 Delivery Room Air Room Air Room Air Room Air 09/13/16 09/13/16 09/13/16 09/13/16 06:25 07:00 08:00 08:00 Temp 97.0 Pulse 113 128 Resp 24 B/P 97/64 Pulse Ox 97 93 93 O2 Delivery Room Air Room Air Room Air 09/13/16 09/13/16 09/13/16 09/13/16 10:20 10:54 11:00 12:00 Temp 95.9 Pulse 129 133 121 Resp 22 15 B/P 84/59 98/67 99/63 Pulse Ox 100 98 O2 Delivery Room Air Room Air 09/13/16 09/13/16 12:00 12:00 Pulse 10 Resp 16 B/P 104/66 Pulse Ox 100 97 O2 Delivery Room Air Room Air Capillary Refill : Less Than 3 Seconds Constitutional: No appears stated age, No AAO x 3, No apparent distress, No PERRL, No well-developed, No well-nourished, No other HEENT: No PERRL, No normal ENT inspection, No TMs normal, No pharynx normal, No scleral icterus (R), No scleral icterus (L), No pale conjunctivae (R), No pale conjunctivae (L), No photophobia, No TM abnormal (R), No TM abnormal (L), No pharyngeal erythema, No tonsillar exudate, No other, No discharge, No EOMI, No hearing is well preserved, No hard of hearing, No oral hygience is good, No ulceration, No xanthelasmas are seen Neck: No non-tender, No full range of motion, No supple, No normal inspection, No carotid bruit, No limited range of motion, No lymphadenopathy (R), No lymphadenopathy (L), No tender lateral, No tender midline, No thyromegaly, No other, No carotid pulses are 2 + bilaterally, No with good upstrokes Respiratory: No accessory muscle use, No respiratory distress, No chest tender , No chest expansion is symmetric, No chest is bilaterally symmetric, No lungs clear to percussion, No lungs clear to auscultation, No crackles, No rhonchi, No rales, No stridor, No wheezing, No pleural rub, No other Cardiovascular: No regular rate-rhythm, No irregularly irregular, No extra beats, No parasternal heave is noted, No JVD, No edema, No bradycardia, No tachycardia, No point of maximal impulse, No cardiac thrills are palpable, No S1 and S2, No gallop/S3, No gallop/S4, No diastolic murmur, No systolic murmur, No friction rub, No click, No other Gastrointestinal: No tender, No soft, No round, No distended, No pulsatile mass , No organomegaly, No guarding, No rebound, No tenderness, No hernia, No mass, No audible bowel sounds, No abnormal bowel sounds, No abdominal bruits, No spleenomegaly, No other Rectal: deferred Extremities: wound Neurologic/Psychiatric: No children's program coordinator II-XII nml as tested, No no motor/sensory deficits, No alert, No normal mood/affect, No oriented x 3, No abnormal cerebellar tests, No abnormal children's program coordinator II-XII, No abnormal gait, No aphasia, No EOM palsy, No facial droop, No motor weakness, No sensory deficit, No depressed affect, No disoriented x 3, No other, No grossly intact, No power is 5/5 both on sides Skin: No normal color, No warm/dry, No cyanosis, No cool, No diaphoresis, No damp, No ecchymosis, No jaundice, No mottled, No pallor, No rash, No tattoos/ piercings, No ulcerations, No rash on exposed areas, No ulcerations on exposed areas, No other Data Review Labs Laboratory Tests 09/12/16 16:55: Alanine Aminotransferase (ALT/SGPT) 21, Albumin 2.3L, Alkaline Phosphatase 94, Anion Gap 12, Aspartate Amino Transf (AST/SGOT) 61H, B-Type Natriuretic Peptide 244.5H, BUN/Creatinine Ratio 18, Basophils # (Auto) 0.0, Basophils (%) (Auto) 0 , Blood Urea Nitrogen 18, Calcium Level 7.4L, Carbon Dioxide Level 23, Chloride Level 89L, Creatinine 1.00, Eosinophils # (Auto) 0.1, Eosinophils (%) (Auto) 1, Estimat Glomerular Filtration Rate > 60, Glucose Level 120H, Hematocrit 31L, Hemoglobin 11.1L, Lymphocytes # (Auto) 1.9, Lymphocytes (%) (Auto) 15, Mean Corpuscular Hemoglobin 32, Mean Corpuscular Hemoglobin Concent 36, Mean Corpuscular Volume 91, Mean Platelet Volume 9.6, Monocytes # (Auto) 0.9, Monocytes (%) (Auto) 7, Neutrophils # (Auto) 9.7H, Neutrophils (%) (Auto) 77H, Platelet Count 236, Potassium Level 3.8, Red Blood Count 3.44L, Red Cell Distribution Width 14.2, Serum Alcohol < 10, Sodium Level 124*L, Total Bilirubin 1.1H, Total Protein 5.0L, Troponin I 0.51*H, White Blood Count 12.5H 09/12/16 20:30: Urine Bacteria MODERATEH, Urine Bilirubin NEGATIVE, Urine Casts PRESENT, Urine Clarity CLEAR, Urine Color YELLOW, Urine Crystals NONE, Urine Culture Indicated YES, Urine Glucose (UA) NEGATIVE, Urine Hyaline Casts RARE, Urine Ketones NEGATIVE, Urine Leukocyte Esterase 3+H, Urine Mucus NEGATIVE, Urine Nitrite NEGATIVE, Urine Protein NEGATIVE, Urine RBC 50-100H, Urine RBC (Auto) 5+H, Urine Renal Epithelial Cells 0-2, Urine Specific [place] 1.015L, Urine Squamous Epithelial Cells 10-25H, Urine Urobilinogen NORMAL, Urine WBC 50-100H, Urine pH 6 09/12/16 23:02: Troponin I 0.47*H 09/13/16 03:37: Anion Gap 13, B-Type Natriuretic Peptide 302.0H, BUN/Creatinine Ratio 20, Blood Urea Nitrogen 20H, Calcium Level 7.1L, Carbon Dioxide Level 20L, Chloride Level 94L, Creatinine 1.02, Estimat Glomerular Filtration Rate > 60, Glucose Level 106H, Potassium Level 3.8, Sodium Level 127L, Troponin I 0.49*H Microbiology 09/12/16 Urine Culture - Preliminary, Resulted Probable Enterococcus Species ECG Impression ECG Initial ECG Impression: Atrial Fibrillation A/P-Cardiology Assessment/Admission Diagnosis Non-ST elevation VA, Atrial fibrillation, Sacral ulcer Plan I defer treatment of sacral ulcer and possible infection to Dr. Funk. I would like to know from Dr. Funk if we can give the patient aspirin and Plavix. The patient is already on Lovenox. Non-ST elevation VA will be treated with medical therapy which will include aspirin, Plavix, Lovenox. Coronary angiography will be performed when the okay is given by Dr. Funk as far as the sacral ulcer is concerned. Since if there is systemic infection or significant risk of bleeding; coronary angiography is contraindicated unless emergent. Atrial fibrillation: Patient is already on Lovenox. Agree with rate control. Thank you for your consultation. Please call me if you have any questions. Antonio Ruggiero MD, FACP, FACC, FSCAI, FHRS, CCDS Interventional Cardiology Cardiac Electrophysiology Vascular Medicine and Endovascular Interventions Clinical Quality Measures DVT/VTE Risk/Contraindication: Risk Factor Score Per Nursin RFS Level Per Nursing on Admit: 4+=Very High Cathy RUGGIERO MD Sep 13, 2016 1:38 pm
[2016-09-13] MEDS: NS IV 1000 ML 1,000 ML IV SCH ×2 (15:39→22:41)
[2016-09-13] MEDS ORDERED: NS IV 1000 ML 1,000 ML IV ONE (17:00)
[2016-09-13] MEDS ORDERED: FUROSEMIDE 40 MG/4 ML INJ (LASIX) IVP ONE (19:30)
[2016-09-13] MEDS: ASPIRIN 325 MG (5 GR) TABLET PO SCH (22:39)
[2016-09-14] VITALS (23 sets, daily range): BP systolic 80–107; BP diastolic 53–78
[2016-09-14 04:29] LABS: RED BLOOD COUNT 3.05 10^6/uL (4.35-5.85); RED CELL DISTRIBUTION WIDTH 14.5 % (10.0-14.5)
[2016-09-14 04:52] LABS: ALBUMIN 2.1 G/DL (3.2-4.5); BILIRUBIN,TOTAL 0.6 MG/DL (0.1-1.0); CALCIUM 7.1 MG/DL (8.5-10.1); CREATININE SERUM 1.19 MG/DL (0.60-1.30); POTASSIUM 3.5 MMOL/L (3.6-5.0); TOTAL PROTEIN 4.5 G/DL (6.4-8.2)
[2016-09-14 05:08] LABS: TROPONIN I 0.44 NG/ML (<0.30)
[2016-09-14] MEDS: FUROSEMIDE 40 MG/4 ML INJ (LASIX) IV SCH (06:23)
[2016-09-14] MEDS: DILTIAZEM DRIP 100 MG in SODIUM CHLORIDE (ADD-VANTAGE) 100 ML IV SCH (06:25)
--- NOTE | 2016-09-14 08:53 | Diagnostic Imaging Report ---
INDICATION: Atrial fibrillation. FINDINGS: There are right rib fractures laterally at the mid to lower chest, not identified on the prior and presumed acute. Correlate with any interval trauma or compression. The cardiomegaly is unchanged. The right-sided pleural fluid volume may be slightly increased. There is some increased perihilar and basilar atelectasis. No pneumothorax. IMPRESSION: Newly apparent right rib fractures and slightly increased right pleural fluid volume. The remaining findings are stable. Dictated by: Dictated on workstation # [id number]
[2016-09-14] MEDS: NS IV 1000 ML 1,000 ML IV SCH ×2 (09:37→19:39)
[2016-09-14] MEDS: ASPIRIN 325 MG (5 GR) TABLET PO SCH (09:45)
--- NOTE | 2016-09-14 09:53 | Progress Note-Standard ---
Standard Progress Note Progress Notes/Assess & Plan Progress/Assessment & Plan 09/13/16:admitted with chronic atrial fibrillation with rapid ventricular rate. On therapeutic doses of Lovenox. Cardizem drip just about to be infused. Asked to see regarding sacral decubitus. Erythema and some necrotic tissue around the sacral region. At this point, would use wound protective agents and use pressure mattress. May require operative debridement soon 09/14/16: Ventricular rate controlled with Cardizem. Decubitus ulcer looks less necrotic and therefore could be managed without operative debridement. Final Diagnosis Atrial fibrillation. Sacral decubitus ulcer. DANIELE COX MD Sep 14, 2016 09:53
[2016-09-14] MEDS: ENOXAPARIN 80 MG/0.8 ML (LOVENOX) SYR SC SCH ×2 (10:14→23:39)
--- NOTE | 2016-09-14 11:38 | ST Dysphagia Evaluation ---
Speech Evaluation-General Medical Diagnosis Generalized Weakness Onset Date: Oct 10, 2016 Therapy Diagnosis Therapy Diagnosis: Mild Oropharyngeal Dysphagia Precautions Precautions: Aspiration Precautions/Isolations: Standard Precautions Referral Referring Physician: Dr. Shreyas Blackman Reason for Referral: Evaluation/Treatment Clinical Bedside Swallowing Evaluation Medical History Pertinent Medical History: Atrial Fib, Alcoholism, Arthritis, Heart Failure, HTN Reviewed History: Yes Speech PLF/Current-Dysphagia Prior Level of Function The patient reported "some" choking on food and liquids at home, however, stated it occurs "not very often." Per patient, he consumes a regular diet with thin liquids. Subjective The patient was recently admitted to [facility] with a diagnosis of generalized weakness. The patient was seated upright in bed upon entrance. The patient greeted the clinician appropriately and agreed to participate in the dysphagia evaluation on this date. To note, the patient stated his jaw is "locked" and he is unable to open his mouth widely for food presentation. CXR: 09/14/2015: Newly apparent right rib fractures and slightly increased right pleural fluid volume. The remaining findings are stable. Cognitive Status Patient Orientation: Person Oral Motor Skills Dentition: Natural Current Food Consistancy: Pureed, Thin Liquids Ability to Follow Directions: Fair Oral Expression Ability: Mild Impairment Voice Voice Phonatory-Based Quality: Glottal Collins Voice Pitch: Normal Voice Loudness: Moderately Soft/Quiet Face Facial Symmetry: Asymmetrical (Mild left facial droop.) Oral-Facial Assessment Oral-Facial Dentition: Normal Labial Seal Description: Droops Left Smile: Droops Left Puff Cheeks: Reduced Strength (Left.) Lingual Protrusion: Normal Lingual ROM: Normal Lingual Strength: Abnormal (Mildly weak.) Pharynx Velopharyngeal Move.: Normal Volitional Dry Swallow: Yes Dysphagia Evaluation Consistencies Presented: Thin Liquid (Teaspoon, Cup Sip, Straw), Pureed Increased mastication and posterior transfer was noted of puree consistencies tested. One occasion of anterior spillage occurred with thin liquids via cup sip (left side). Pharyngeal Phase: Reduced Laryngeal Elevation Funct. Velo/Pharyngeal Symptom: Clears Throat, Cough After Swallow - Thin Liquids: The patient demonstrated a delayed cough following two drinks of thin liquid via straw. No signs/symptoms of aspiration were demonstrated with multiple boluses of thin liquid via teaspoon or cup sip. - Puree: No signs/symptoms of aspiration were demonstrated with multiple bites of puree consistency. - The patient's SpO2% remained at 99% throughout bolus trials. - Solid consistencies were deferred secondary to the patient's reduced ability to open mouth widely/masticate. Dietary Recommendations: Pureed Liquid Recommendations: Thin Swallowing Precautions: No Straw, Small Bites and Sips, Sitting 90 Degrees 30 Post Intake - Crush medication and place in puree for administration. Dysphagia Evaluation Summary The patient demonstrated mild oropharyngeal dysphagia characterized by decreased labial strength, reduced lingual range of motion, and decreased laryngeal elevation. Speech-Plan Treatment Plan Speech Therapy Treatment Plan: Discontinue ST (Eval, only.) Rehab Potential: Guarded Safety Risks/Education Teaching Recipient: Patient Teaching Methods: Discussion Response to Teaching: Verbalize Understanding, Reinforcement Needed Education Topics Provided: Results, Recommendations, Swallowing Strategies Time Speech Therapy Time In: 10:30 Speech Therapy Time Out: 10:45 Total Billed Time: 15 Billed Treatment Time 1, RYLAN TYSON Sep 14, 2016 11:38
--- NOTE | 2016-09-14 11:50 | Progress Note (SOAP) ---
Subjective Subjective/Events-last exam PT IS AN 81 Y/O MALE WHO IS KNOWN TO ME FROM PREVIOUS HOSPITALIZATIONS. HE HAS HISTORY OF CORONARY ARTERY DISEASE, HISTORY OF CHF, AND POOR MEDICATION COMPLIANCE. THE PATIENT STATES THAT HE IS HAVING LOOSE STOOLS, HAS PAIN IN HIS BACK/BUTTOCK REGION FROM A SORE ON HIS BOTTOM. Review of Systems General: Fatigue Malaise HEENT: No Head Aches Pulmonary: No Dyspnea, No Cough Cardiovascular: No: Chest Pain, Edema Gastrointestinal: : DiarrheaNo: Abdominal Pain, Nausea Genitourinary: Incontinence Other (BOURGEOIS IN PLACE) Neurological: : Confusion: Weakness Objective Exam Vital Signs Date Time Temp Pulse Resp B/P Pulse Ox O2 Delivery O2 Flow Rate FiO2 09/14/16 09:00 111 22 99/61 92 Room Air 09/14/16 08:30 97.1 09/14/16 08:00 98 18 97/66 96 Room Air 09/14/16 07:49 99 Room Air 09/14/16 07:00 99 10 107/64 99 Room Air 09/14/16 07:00 98 09/14/16 06:00 101 27 101/65 97 Room Air 09/14/16 05:00 93 26 97/61 98 Room Air 09/14/16 04:00 95 Room Air 09/14/16 04:00 103 12 90/57 98 Room Air 09/14/16 03:00 93 15 93/56 98 Room Air 09/14/16 02:00 96 18 94/78 98 Room Air 09/14/16 01:00 99 19 93/63 94 Room Air 09/14/16 01:00 106 09/14/16 00:00 93 Room Air 09/14/16 00:00 98 26 91/53 98 Room Air 09/14/16 00:00 Room Air 09/13/16 23:00 96 17 93/63 99 Room Air 09/13/16 22:00 96 16 87/47 93 Room Air 09/13/16 21:00 95 Room Air 09/13/16 21:00 90 16 83/48 98 Room Air 09/13/16 20:49 97 Room Air 09/13/16 20:00 83 17 94/59 98 Room Air 09/13/16 20:00 93 Room Air 09/13/16 19:00 89 16 97/65 Room Air 09/13/16 19:00 82 09/13/16 18:00 96 17 87/57 94 Room Air 09/13/16 17:00 83 19 85/54 98 Room Air 09/13/16 16:00 95 Room Air 09/13/16 16:00 76 23 80/52 99 Room Air 09/13/16 16:00 96.2 09/13/16 15:00 87 27 83/62 96 Room Air 09/13/16 14:00 85 15 95/65 95 Room Air 09/13/16 13:00 113 09/13/16 13:00 98 20 84/62 94 Room Air 09/13/16 12:00 97 Room Air 09/13/16 12:00 10 16 104/66 100 Room Air 09/13/16 12:00 95.9 I & O 09/14/16 07:00 Intake Total 2565 ml Output Total 750 ml Balance 1815 ml Capillary Refill : Less Than 3 Seconds General Appearance: Mild Distress Thin HEENT: PERRL/EOMI Pharynx Normal Neck: Full Range of Motion Supple Respiratory: Chest Non Tender No Accessory Muscle Use Decreased Breath Sounds Cardiovascular: Systolic Murmur Irregularly Irregular Gastrointestinal: normal bowel sounds non tender soft no organomegaly no pulsatile mass Extremity: Normal Capillary Refill No Calf Tenderness Pedal Edema Neurologic/Psychiatric: Alert Other (ORIENTED TO PERSON AND PLACE, NOT SURE OF WHO THIS PROVIDER IS DESPITE MULTIPLE INTERACTIONS) Skin: Warm/Dry Other (COCCYX WITH LARGE NECROTIC AREA WITH SOME OPEN TISSUE AND BLEEDING) Lymphatic: No Adenopathy Results Lab Laboratory Tests 09/13/16 18:56: Lactic Acid Level 1.4 09/14/16 03:48: Alanine Aminotransferase (ALT/SGPT) 18, Albumin 2.1L, Alkaline Phosphatase 78, Anion Gap 12, Aspartate Amino Transf (AST/SGOT) 45H, BUN/Creatinine Ratio 20, Blood Urea Nitrogen 24H, Calcium Level 7.1L, Carbon Dioxide Level 21, Chloride Level 96L, Creatinine 1.19, Estimat Glomerular Filtration Rate 59, Glucose Level 96, Hematocrit 28L, Hemoglobin 9.7L, Mean Corpuscular Hemoglobin 32, Mean Corpuscular Hemoglobin Concent 34, Mean Corpuscular Volume 93, Mean Platelet Volume 10.0, Platelet Count 182, Potassium Level 3.5L, Red Blood Count 3.05L, Red Cell Distribution Width 14.5, Sodium Level 129L, Total Bilirubin 0.6, Total Protein 4.5L, Troponin I 0.44*H, White Blood Count 12.0H Microbiology 09/12/16 Urine Culture - Preliminary, Resulted Enterococcus Faecalis Gram Negative Dylon Assessment/Plan Assessment/Plan Assess & Plan/Chief Complaint ACUTE NON-ST ELEVATION [place] ATRIAL FIBRILLATION DIARRHEA COCCYGEAL PRESSURE ULCER URINARY TRACT INFECTION NON ST [place] WITH AFIB - CONTINUE WITH LOVENOX, HEART RATE CONTROL - RECOMMENDATIONS AND TREATMENT PER DR. RUGGIERO. DIARRHEA - CHECK CDIFF - MONITOR SYMPTOMS - START ON PROBIOTIC. COCCYGEAL ULCER - TREATMENT PER DR. COX - PROTECTION FROM DIARRHEAL STOOLS, WOUND CARE TO EVAL PATIENT TOMORROW. URINARY TRACT INFECTION - CONTINUE WITH ROCEPHIN - WAIT FOR FURTHER SPECIATION AND SENSITIVITIES Diagnosis/Problems: Clinical Quality Measures DVT/VTE Risk/Contraindication: Risk Factor Score Per Nursin RFS Level Per Nursing on Admit: 4+=Very High THA FRAGA MD Sep 14, 2016 11:50
[2016-09-14] MEDS: LACTOBACILLUS Acidoph/Bulgar (LACTINEX/FLORANEX) TAB PO SCH ×2 (13:30→20:01)
--- NOTE | 2016-09-14 13:45 | Cardiology Progress Note ---
Cardiology SOAP Progress Note Subjective: no cardiac complaints Objective: I&O/Vital Signs Vital Sign - Last 12Hours 09/14/16 09/14/16 09/14/16 09/14/16 09:15 09:45 10:00 11:00 Pulse 106 101 Resp 22 18 B/P 99/62 93/59 Pulse Ox 92 98 O2 Delivery Room Air Room Air Room Air Room Air 09/14/16 09/14/16 09/14/16 09/14/16 12:00 12:00 13:00 13:00 Pulse 98 114 109 Resp 17 29 B/P 96/62 93/56 Pulse Ox 100 98 O2 Delivery Room Air Room Air Room Air 09/14/16 09/14/16 09/14/16 09/14/16 13:13 14:00 15:00 16:00 Temp 96.2 Pulse 89 99 96 Resp 14 13 18 B/P 91/59 80/66 96/67 Pulse Ox 100 98 97 O2 Delivery Room Air Room Air Room Air 09/14/16 09/14/16 09/14/16 09/14/16 16:00 16:00 17:00 19:00 Temp 97.1 Pulse 100 92 Resp 20 B/P 102/65 Pulse Ox 100 O2 Delivery Room Air Room Air 09/14/16 20:31 Pulse Ox 96 O2 Delivery Room Air Intake and Output 09/14/16 00:00 Intake Total 1310 ml Output Total 225 ml Balance 1085 ml Weight (Pounds): 159 Weight (Ounces): 5.0 Weight (Calculated Kilograms): 72.878484 Constitutional: No appears stated age, No AAO x 3, No apparent distress, No PERRL, No well-developed, No well-nourished, No other Respiratory: No accessory muscle use, No respiratory distress, No chest tender , No chest expansion is symmetric, No chest is bilaterally symmetric, No lungs clear to percussion, No lungs clear to auscultation, No crackles, No rhonchi, No rales, No stridor, No wheezing, No pleural rub, No other Cardiovascular: No regular rate-rhythm, No irregularly irregular, No extra beats, No parasternal heave is noted, No JVD, No edema, No bradycardia, No tachycardia, No point of maximal impulse, No cardiac thrills are palpable, No S1 and S2, No gallop/S3, No gallop/S4, No diastolic murmur, No systolic murmur, No friction rub, No click, No other Gastrointestional: No tender, No soft, No round, No distended, No pulsatile mass, No organomegaly, No guarding, No rebound, No tenderness, No hernia, No mass, No audible bowel sounds, No abnormal bowel sounds, No abdominal bruits, No spleenomegaly, No other Extremities: wound Neurologic/Psychiatric: 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, No no motor/sensory deficits, No alert, No normal mood/affect, No oriented x 3, No abnormal cerebellar tests, No abnormal marine radio installer and servicer II-XII, No abnormal gait, No aphasia, No EOM palsy, No facial droop, No motor weakness, No sensory deficit, No depressed affect, No disoriented x 3, No other, No grossly intact, No power is 5/5 both on sides Skin: No normal color, No warm/dry, No cyanosis, No cool, No diaphoresis, No damp, No ecchymosis, No jaundice, No mottled, No pallor, No rash, No tattoos/ piercings, No ulcerations, No rash on exposed areas, No ulcerations on exposed areas, No other Results/Procedures: Labs Laboratory Tests 09/14/16 03:48: Alanine Aminotransferase (ALT/SGPT) 18, Albumin 2.1L, Alkaline Phosphatase 78, Anion Gap 12, Aspartate Amino Transf (AST/SGOT) 45H, BUN/Creatinine Ratio 20, Blood Urea Nitrogen 24H, Calcium Level 7.1L, Carbon Dioxide Level 21, Chloride Level 96L, Creatinine 1.19, Estimat Glomerular Filtration Rate 59, Glucose Level 96, Hematocrit 28L, Hemoglobin 9.7L, Mean Corpuscular Hemoglobin 32, Mean Corpuscular Hemoglobin Concent 34, Mean Corpuscular Volume 93, Mean Platelet Volume 10.0, Platelet Count 182, Potassium Level 3.5L, Red Blood Count 3.05L, Red Cell Distribution Width 14.5, Sodium Level 129L, Total Bilirubin 0.6, Total Protein 4.5L, Troponin I 0.44*H, White Blood Count 12.0H Microbiology 09/12/16 Urine Culture - Preliminary, Resulted Enterococcus Faecalis Gram Negative Dylon A/P: Assessment/Dx: nstemi, infected sacral ulcers Plan: I defer treatment of sacral ulcer and possible infection to Dr. Funk. medical management of NSTEMI - heparin, aspirin, plavix, bb, mariela inhibitors and statin. Atrial fibrillation: Patient is already on Lovenox. Agree with rate control. Cathy RUGGIERO MD Sep 14, 2016 1:45 pm
[2016-09-14] MEDS ORDERED: metroNIDAZOLE 500MG/100ML IVPB 100 ML IV SCH (14:00)
[2016-09-14] MEDS: metroNIDAZOLE 500MG/100ML IVPB 100 ML IV SCH (23:38)
[2016-09-15] VITALS (8 sets, daily range): BP systolic 84–105; BP diastolic 58–76
[2016-09-15] MEDS: DILTIAZEM DRIP 100 MG in SODIUM CHLORIDE (ADD-VANTAGE) 100 ML IV SCH (02:45)
[2016-09-15] MEDS: LACTOBACILLUS Acidoph/Bulgar (LACTINEX/FLORANEX) TAB PO SCH ×3 (05:58→16:12)
[2016-09-15] MEDS: metroNIDAZOLE 500MG/100ML IVPB 100 ML IV SCH ×3 (05:58→21:37)
[2016-09-15] MEDS: NS IV 1000 ML 1,000 ML IV SCH ×2 (05:58→16:00)
[2016-09-15] MEDS: FUROSEMIDE 40 MG/4 ML INJ (LASIX) IV SCH (06:08)
--- NOTE | 2016-09-15 06:46 | Progress Note (SOAP) ---
Subjective Subjective/Events-last exam PT REPORTS THAT HE IS JUST FEELING FATIGUED TODAY HE REPORTS THAT HE THINKS HIS DIARRHEA HAS IMPROVED TODAY. HE ALSO REPORTS THAT HE IS JUST FEELING OVERALL LIKE HE IS DECLINING. Review of Systems General: Fatigue Malaise Appetite (DECREASED) HEENT: No Head Aches Pulmonary: Dyspnea Cough Cardiovascular: : Edema: OrthopneaNo: Chest Pain Gastrointestinal: No: Nausea Genitourinary: Incontinence Neurological: : Confusion: Weakness Objective Exam Vital Signs Date Time Temp Pulse Resp B/P Pulse Ox O2 Delivery O2 Flow Rate FiO2 09/15/16 04:00 Room Air 09/15/16 04:00 98.6 92 16 103/64 99 Room Air 09/15/16 02:00 91 12 91/60 97 Room Air 09/15/16 01:12 105 09/15/16 01:00 115 18 105/76 98 Room Air 09/15/16 00:00 Room Air 09/15/16 00:00 103 15 103/62 99 Room Air 09/14/16 23:00 98 4 103/77 96 Room Air 09/14/16 22:00 87 14 95/59 97 Room Air 09/14/16 21:00 98 13 95/61 98 Room Air 09/14/16 20:31 96 Room Air 09/14/16 20:00 101 21 98/68 99 Room Air 09/14/16 20:00 Room Air 09/14/16 19:00 108 18 96/64 100 Room Air 09/14/16 19:00 92 09/14/16 17:00 100 20 102/65 100 Room Air 09/14/16 16:00 Room Air 09/14/16 16:00 97.1 09/14/16 16:00 96 18 96/67 97 Room Air 09/14/16 15:00 99 13 80/66 98 Room Air 09/14/16 14:00 89 14 91/59 100 Room Air 09/14/16 13:13 96.2 09/14/16 13:00 109 09/14/16 13:00 114 29 93/56 98 Room Air 09/14/16 12:00 Room Air 09/14/16 12:00 98 17 96/62 100 Room Air 09/14/16 11:00 101 18 93/59 98 Room Air 09/14/16 10:00 106 22 99/62 92 Room Air 09/14/16 09:45 Room Air 09/14/16 09:15 Room Air 09/14/16 09:00 111 22 99/61 92 Room Air 09/14/16 08:30 97.1 09/14/16 08:00 98 18 97/66 96 Room Air 09/14/16 07:49 99 Room Air 09/14/16 07:00 99 10 107/64 99 Room Air 09/14/16 07:00 98 I & O 09/15/16 07:00 Intake Total 3320 ml Output Total 620 ml Balance 2700 ml Capillary Refill : Less Than 3 Seconds General Appearance: Mild Distress Thin HEENT: PERRL/EOMI Neck: Supple Respiratory: Chest Non Tender Decreased Breath Sounds Cardiovascular: Irregularly Irregular Gastrointestinal: normal bowel sounds non tender soft Extremity: Pedal Edema Neurologic/Psychiatric: Alert Other (ORIENTED TO SELF) Skin: Other (NECROSIS OF TISSUE ON SACRUM) Results Lab Microbiology 09/12/16 Urine Culture - Preliminary, Resulted Enterococcus Faecalis Gram Negative Dylon Assessment/Plan Assessment/Plan Assess & Plan/Chief Complaint ACUTE NON-ST ELEVATION [place] ATRIAL FIBRILLATION DIARRHEA COCCYGEAL PRESSURE ULCER URINARY TRACT INFECTION NON ST [place] WITH AFIB - CONTINUE WITH LOVENOX, HEART RATE CONTROL - RECOMMENDATIONS AND TREATMENT PER DR. RUGGIERO. DIARRHEA - CHECK CDIFF - MONITOR SYMPTOMS - START ON PROBIOTIC. COCCYGEAL ULCER - PROTECTION FROM DIARRHEAL STOOLS, WOUND CARE TO EVAL PATIENT TODAY URINARY TRACT INFECTION - STOP ROCEPHIN AND START ON LEVAQUIN FOR TREATMENT OF URINARY TRACT INFECTION. [phone] - DAUGHTER YEYO'S PHONE NUMBER DISCUSSED WITH PATIENT'S - ADVISED HER THAT LARA IS NOT RESPONDING WELL TO OUR TREATMENT, HIS BLOOD PRESSURE IS EXTREMELY LOW AND HIS HEART RATE IS ELEVATED, HIS CARDIAC STATUS IS NOT STRONG ENOUGH TO DEAL WITH LARGE VOLUMES OF IV FLUIDS, AND WE ARE AT A VERY DIFFICULT PLACE FAR TREATMENT OF LARA IS CONCERNED. I HAVE ADVISED HER THAT TOMORROW - 09/16/16, WE MAY NEED TO CONSIDER COMFORT CARE. THIS MORNING, LARA ADVISED ME THAT HE FEELS IF HE IS DYING. HE TOLD THE NURSE TODAY THAT HE JUST DOES NOT FEEL THAT HE HAS IT IN HIM TO GET BETTER AND IT MAY BE BETTER FOR HIM AND EVERYONE ELSE IF HE WERE TO PASS AWAY, THAT HE IS TIRED OF FIGHTING. NURSING STAFF NOTES THAT MR. MENDOZA IS NO LONGER ON CARDIZEM DRIP DESPITE THE FACT THAT IT IS ON HIS ELECTRONIC MEDICATION RECORD, HE HAS - IN FACT - NOT BEEN ON THE DRIP SINCE Wednesday. I HAVE ASKED FOR THE STAFF TO GIVE MR Chucky MENDOZA A 250ML FLUID BOLUS, THEN STOP THE NORMAL SALINE AND START ON CLINIMIX WITH LYTES AND WE WILL RE-EVAL HIS STATUS TOMORROW. IF HE IS CONTINUING TO SHOW DECLINE WE WILL THEN CONSIDER COMFORT CARE PER MY DISCUSSION WITH THE PATIENT'S . Diagnosis/Problems: Clinical Quality Measures DVT/VTE Risk/Contraindication: Risk Factor Score Per Nursin RFS Level Per Nursing on Admit: 4+=Very High THA FRAGA MD Sep 15, 2016 06:46
[2016-09-15 07:13] LABS: MEAN PLATELET VOLUME 9.3 FL (7.4-10.4); RED BLOOD COUNT 3.03 10^6/uL (4.35-5.85); RED CELL DISTRIBUTION WIDTH 14.8 % (10.0-14.5); WHITE BLOOD COUNT 9.2 10^3/uL (4.3-11.0)
[2016-09-15 07:33] LABS: ALANINE AMINOTRANSFERASE 16 U/L (0-55); ALBUMIN 2.1 G/DL (3.2-4.5); ANION GAP 9 MMOL/L (5-14); ASPARTATE AMINO TRANSFERASE 39 U/L (5-34); BILIRUBIN,TOTAL 0.6 MG/DL (0.1-1.0); BLOOD UREA NITROGEN 22 MG/DL (7-18); BUN/CREATININE RATIO 22; CALCIUM 6.9 MG/DL (8.5-10.1); CARBON DIOXIDE 22 MMOL/L (21-32); CHLORIDE 99 MMOL/L (98-107); GFR ESTIMATED > 60; GLUCOSE 77 MG/DL (70-105); SODIUM 130 MMOL/L (135-145); TOTAL PROTEIN 4.3 G/DL (6.4-8.2)
[2016-09-15] MEDS: KCL 20 MEQ TAB (K-DUR) PO SCH (08:17)
[2016-09-15] MEDS: MAGNESIUM 1 GM/100 ML IVPB 100 ML IV SCH (08:17)
[2016-09-15] MEDS: POTASSIUM CL 10MEQ/50ML IVPB 50 ML IV SCH ×6 (08:18→14:05)
--- NOTE | 2016-09-15 08:39 | Progress Note-Standard ---
Standard Progress Note Progress Notes/Assess & Plan Progress/Assessment & Plan 09/13/16:admitted with chronic atrial fibrillation with rapid ventricular rate. On therapeutic doses of Lovenox. Cardizem drip just about to be infused. Asked to see regarding sacral decubitus. Erythema and some necrotic tissue around the sacral region. At this point, would use wound protective agents and use pressure mattress. May require operative debridement soon 09/14/16: Ventricular rate controlled with Cardizem. Decubitus ulcer looks less necrotic and therefore could be managed without operative debridement. 09/15/16:hypokalemia. Formal wound care measures expected today. We will reassess Final Diagnosis decubitus ulcer. Atrial fibrillation. DANIELE COX MD Sep 15, 2016 8:39 am
[2016-09-15] MEDS: ASPIRIN 325 MG (5 GR) TABLET PO SCH (09:03)
[2016-09-15] MEDS: ENOXAPARIN 80 MG/0.8 ML (LOVENOX) SYR SC SCH (09:03)
[2016-09-15] MEDS: LEVOFLOXACIN 500 MG/100 ML IV 100 ML IV SCH (09:37)
[2016-09-15] MEDS ORDERED: FURO40TA4 PO (12:08)
[2016-09-15] MEDS ORDERED: POTA20TA15 PO (12:08)
[2016-09-15] MEDS ORDERED: CATHETER FLUSH 10 ML SYR IV PRN (15:15)
--- NOTE | 2016-09-15 17:22 | Wound Care Progress Note ---
Subjective Subjective Subjective/Events-last exam 81 year old gentleman with debility, urinary incontinence, and malnutrition. the patient has limited mobility and is admitted with a pressure ulcer of the sacrum present. He is unable to relate how long it has been there. Current orders include frequent turning and a [id number] mattress. there is a large butterfly pattern around the deeper central portion, that appears to be primarily due to moisture. Review of Systems General: No Night Sweats Pulmonary: No Dyspnea Cardiovascular: No: Chest Pain Neurological: : Weakness Objective Exam Last Set of Vital Signs Vital Signs Date Time Temp Pulse Resp B/P Pulse Ox O2 Delivery O2 Flow Rate FiO2 09/15/16 16:00 Room Air 09/15/16 16:00 96.6 129 9 84/58 100 Capillary Refill : Less Than 3 Seconds I&O Intake and Output 09/15/16 00:00 Intake Total 4045 ml Output Total 825 ml Balance 3220 ml Intake Oral 920 ml IV Total 3125 ml Output Urine Total 825 ml # Bowel Movements 2 General: Alert, No Acute Distress Lungs: Normal Air Movement Skin: Other (Sacral ulcer, 14.0 x 11.5 x 0.5 cm, central soft black eschar, surrounding butterfly of partial tickness loss. Moderate bloody drainage.) Results Lab Laboratory Tests 09/15/16 07:05: Alanine Aminotransferase (ALT/SGPT) 16, Albumin 2.1L, Alkaline Phosphatase 72, Anion Gap 9, Aspartate Amino Transf (AST/SGOT) 39H, BUN/Creatinine Ratio 22, Blood Urea Nitrogen 22H, Calcium Level 6.9L, Carbon Dioxide Level 22, Chloride Level 99, Creatinine 1.00, Estimat Glomerular Filtration Rate > 60, Glucose Level 77, Hematocrit 28L, Hemoglobin 9.7L, Mean Corpuscular Hemoglobin 32, Mean Corpuscular Hemoglobin Concent 35, Mean Corpuscular Volume 93, Mean Platelet Volume 9.3, Platelet Count 201, Potassium Level 3.0L, Red Blood Count 3.03L, Red Cell Distribution Width 14.8H, Sodium Level 130L, Total Bilirubin 0.6, Total Protein 4.3L, White Blood Count 9.2 Microbiology 09/12/16 Urine Culture - Final, Complete Enterococcus Faecalis Providencia Alcalifaciens 1-2 Assessment/Plan Assessment/Plan Assessment/Plan 1. Pressure ulcer, sacrum, unstageable. 2. Malnutrition. 3. Debility. Plan: Barrier cream, ANJEL mattress, frequent repositioning. KILEY WRAY MD Sep 15, 2016 17:22
[2016-09-15] MEDS ORDERED: NS (IVPB) 250 ML IV ONE (18:00)
[2016-09-15] MEDS: AA 4.25% W/LYTES IN D5W IV SOL 1,000 ML IV SCH (19:01)
[2016-09-15] MEDS ORDERED: ZINC OXIDE 16% OINT (BUTT PASTE) 113 GM TUBE TOP PRN (20:30)
--- NOTE | 2016-09-15 20:48 | Cardiology Progress Note ---
Cardiology SOAP Progress Note Subjective: patient is drowsy. did not complain of any cardiac symptoms. Objective: I&O/Vital Signs Vital Sign - Last 12Hours 09/15/16 09/15/16 09/15/16 09/15/16 09:08 09:08 11:43 12:00 Temp 96.3 Pulse 118 Resp 9 B/P 90/59 Pulse Ox 100 100 95 O2 Delivery Room Air Room Air Room Air 09/15/16 09/15/16 09/15/16 13:00 16:00 16:00 Temp 96.6 Pulse 103 129 Resp 9 B/P 84/58 Pulse Ox 100 O2 Delivery Room Air Room Air Intake and Output 09/15/16 00:00 Intake Total 1820 ml Output Total 400 ml Balance 1420 ml Weight (Pounds): 140 Weight (Ounces): 9.0 Weight (Calculated Kilograms): [id number] Constitutional: No appears stated age, No AAO x 3, No apparent distress, No PERRL, No well-developed, No well-nourished, No other Respiratory: No accessory muscle use, No respiratory distress, No chest tender , No chest expansion is symmetric, No chest is bilaterally symmetric, No lungs clear to percussion, No lungs clear to auscultation, No crackles, No rhonchi, No rales, No stridor, No wheezing, No pleural rub, No other Cardiovascular: No regular rate-rhythm, No irregularly irregular, No extra beats, No parasternal heave is noted, No JVD, No edema, No bradycardia, No tachycardia, No point of maximal impulse, No cardiac thrills are palpable, No S1 and S2, No gallop/S3, No gallop/S4, No diastolic murmur, No systolic murmur, No friction rub, No click, No other Gastrointestional: No tender, No soft, No round, No distended, No pulsatile mass, No organomegaly, No guarding, No rebound, No tenderness, No hernia, No mass, No audible bowel sounds, No abnormal bowel sounds, No abdominal bruits, No spleenomegaly, No other Extremities: wound Neurologic/Psychiatric: 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 tested, No no motor/sensory deficits, No alert, No normal mood/affect, No oriented x 3, No abnormal cerebellar tests, No abnormal poultry hatchery manager II-XII, No abnormal gait, No aphasia, No EOM palsy, No facial droop, No motor weakness, No sensory deficit, No depressed affect, No disoriented x 3, No other, No grossly intact, No power is 5/5 both on sides Skin: No normal color, No warm/dry, No cyanosis, No cool, No diaphoresis, No damp, No ecchymosis, No jaundice, No mottled, No pallor, No rash, No tattoos/ piercings, No ulcerations, No rash on exposed areas, No ulcerations on exposed areas, No other Results/Procedures: Labs Laboratory Tests 09/15/16 07:05: Alanine Aminotransferase (ALT/SGPT) 16, Albumin 2.1L, Alkaline Phosphatase 72, Anion Gap 9, Aspartate Amino Transf (AST/SGOT) 39H, BUN/Creatinine Ratio 22, Blood Urea Nitrogen 22H, Calcium Level 6.9L, Carbon Dioxide Level 22, Chloride Level 99, Creatinine 1.00, Estimat Glomerular Filtration Rate > 60, Glucose Level 77, Hematocrit 28L, Hemoglobin 9.7L, Mean Corpuscular Hemoglobin 32, Mean Corpuscular Hemoglobin Concent 35, Mean Corpuscular Volume 93, Mean Platelet Volume 9.3, Platelet Count 201, Potassium Level 3.0L, Red Blood Count 3.03L, Red Cell Distribution Width 14.8H, Sodium Level 130L, Total Bilirubin 0.6, Total Protein 4.3L, White Blood Count 9.2 Microbiology 09/12/16 Urine Culture - Final, Complete Enterococcus Faecalis Providencia Alcalifaciens 1-2 A/P: Assessment/Dx: nstemi, infected sacral ulcers Plan: I defer treatment of sacral ulcer and possible infection to Dr. Funk. medical management of NSTEMI - heparin, aspirin, plavix, bb, mariela inhibitors and statin. Atrial fibrillation: Patient is already on Lovenox. Agree with rate control. Cathy RUGGIERO MD Sep 15, 2016 8:48 pm
[2016-09-15] MEDS: ENOXAPARIN 60 MG/0.6 ML (LOVENOX) SYR SC SCH (21:37)
[2016-09-15] MEDS: ZINC OXIDE 16% OINT (BUTT PASTE) 113 GM TUBE TOP SCH (21:37)
[2016-09-16] VITALS: BP 108/71
[2016-09-16] MEDS: DILTIAZEM DRIP 100 MG in SODIUM CHLORIDE (ADD-VANTAGE) 100 ML IV SCH (00:12)
[2016-09-16] MEDS: AA 4.25% W/LYTES IN D5W IV SOL 1,000 ML IV SCH ×2 (02:00→04:12)
[2016-09-16 04:00] VITALS: BP 92/58
[2016-09-16 04:26] LABS: MEAN PLATELET VOLUME 9.7 FL (7.4-10.4); RED BLOOD COUNT 2.89 10^6/uL (4.35-5.85); RED CELL DISTRIBUTION WIDTH 14.9 % (10.0-14.5); WHITE BLOOD COUNT 8.4 10^3/uL (4.3-11.0)
[2016-09-16 04:53] LABS: ANION GAP 9 MMOL/L (5-14); BLOOD UREA NITROGEN 23 MG/DL (7-18); BUN/CREATININE RATIO 26; CARBON DIOXIDE 20 MMOL/L (21-32); CHLORIDE 99 MMOL/L (98-107); GFR ESTIMATED > 60; GLUCOSE 114 MG/DL (70-105); POTASSIUM 3.6 MMOL/L (3.6-5.0); SODIUM 128 MMOL/L (135-145)
[2016-09-16] MEDS: KCL 20 MEQ TAB (K-DUR) PO SCH (06:00)
[2016-09-16] MEDS ORDERED: POTASSIUM CL 10MEQ/50ML IVPB 50 ML IV SCH (06:00)
[2016-09-16] MEDS: MAGNESIUM 1 GM/100 ML IVPB 100 ML IV SCH (06:00)
[2016-09-16] MEDS: POTASSIUM CL 10MEQ/50ML IVPB 50 ML IV SCH (06:00)
[2016-09-16] MEDS ORDERED: KCL 20 MEQ TAB (K-DUR) PO SCH (06:00)
[2016-09-16] MEDS ORDERED: MAGNESIUM 1 GM/100 ML IVPB 100 ML IV SCH (06:00)
[2016-09-16] MEDS: LACTOBACILLUS Acidoph/Bulgar (LACTINEX/FLORANEX) TAB PO SCH ×2 (06:36→10:33)
[2016-09-16] MEDS: FUROSEMIDE 40 MG/4 ML INJ (LASIX) IV SCH (06:36)
[2016-09-16] MEDS: metroNIDAZOLE 500MG/100ML IVPB 100 ML IV SCH (06:36)
--- NOTE | 2016-09-16 07:15 | Progress Note (SOAP) ---
Subjective Subjective/Events-last exam THIS MORNING, LARA STATES THAT HE IS NOT FEELING WELL, AND WOULD LIKE TO JUST BE ALLOWED TO GO HOME IF POSSIBLE AND PASS AWAY NATURALLY. HIS NURSE FROM LAST NIGHT REPORTED TO ME THAT HE TOLD HER SEVERAL TIMES THAT HE JUST DID NOT WANT ANYTHING FURTHER DONE AND WOULD LIKE TO BE ALLOWED TO PASS AWAY. Review of Systems General: Fatigue Pulmonary: Dyspnea Cardiovascular: : EdemaNo: Chest Pain Gastrointestinal: : DiarrheaNo: Abdominal Pain, Nausea Genitourinary: Incontinence Neurological: : Weakness Objective Exam Vital Signs Date Time Temp Pulse Resp B/P Pulse Ox O2 Delivery O2 Flow Rate FiO2 09/16/16 04:00 Room Air 09/16/16 04:00 98.3 103 21 92/58 93 Room Air 09/16/16 01:00 115 09/16/16 00:00 Room Air 09/16/16 00:00 97.0 111 24 108/71 Room Air 09/15/16 21:11 97 Room Air 09/15/16 21:00 Room Air 09/15/16 20:00 Room Air 09/15/16 20:00 97.2 108 24 96/62 Room Air 09/15/16 19:00 121 09/15/16 16:00 Room Air 09/15/16 16:00 96.6 129 9 84/58 100 Room Air 09/15/16 13:00 103 09/15/16 12:00 Room Air 09/15/16 11:43 96.3 118 9 90/59 95 Room Air 09/15/16 09:08 100 09/15/16 09:08 100 Room Air 09/15/16 08:45 Room Air 09/15/16 08:45 Room Air 09/15/16 08:15 96.2 94 16 95/65 96 Room Air I & O 09/16/16 07:00 Intake Total 1550 ml Output Total 650 ml Balance 900 ml Capillary Refill : Less Than 3 Seconds General Appearance: No Apparent Distress Thin HEENT: PERRL/EOMI Pharynx Normal Neck: Full Range of Motion Supple Respiratory: Chest Non Tender Decreased Breath Sounds Cardiovascular: Irregularly Irregular Tachycardia Gastrointestinal: normal bowel sounds non tender soft other (STOOL POOLED BETWEEN HIS LEGS) Extremity: Pedal Edema Neurologic/Psychiatric: Alert Other (ORIENTED TO PERSON AND PLACE) Skin: Other (LARGE NECROTIC SACRAL ULCER ) Results Lab Laboratory Tests 09/16/16 03:35: Anion Gap 9, BUN/Creatinine Ratio 26, Blood Urea Nitrogen 23H, Calcium Level 7.0L, Carbon Dioxide Level 20L, Chloride Level 99, Creatinine 0.90, Estimat Glomerular Filtration Rate > 60, Glucose Level 114H, Hematocrit 27L, Hemoglobin 9.3L, Mean Corpuscular Hemoglobin 32, Mean Corpuscular Hemoglobin Concent 34, Mean Corpuscular Volume 93, Mean Platelet Volume 9.7, Platelet Count 224, Potassium Level 3.6, Red Blood Count 2.89L, Red Cell Distribution Width 14.9H, Sodium Level 128L, White Blood Count 8.4 Microbiology 09/12/16 Urine Culture - Final, Complete Enterococcus Faecalis Providencia Alcalifaciens 1-2 Assessment/Plan Assessment/Plan Assess & Plan/Chief Complaint ACUTE NON-ST ELEVATION [place] ATRIAL FIBRILLATION DIARRHEA COCCYGEAL PRESSURE ULCER URINARY TRACT INFECTION NON ST [place] WITH AFIB - PT HAS REPORTED THAT HE DOES NOT WANT ANY MORE INTERVENTIONS, NO MORE TREATMENTS. HE REPORTS THAT HE WOULD LIKE TO GO HOME IF POSSIBLE AND START ON HOSPICE/COMFORT CARE. DIARRHEA - CHECK CDIFF - COCCYGEAL ULCER - PROTECTION FROM DIARRHEAL STOOLS, WOUND CARE HAS MADE SPECIFIC RECOMMENDATIONS URINARY TRACT INFECTION - STOP ROCEPHIN AND START ON LEVAQUIN FOR TREATMENT OF URINARY TRACT INFECTION. [phone] - DAUGHTER YEYO'S PHONE NUMBER DISCUSSED WITH PATIENT'S ON 09/15/16 - ADVISED HER THAT LARA IS NOT RESPONDING WELL TO OUR TREATMENT, HIS BLOOD PRESSURE IS EXTREMELY LOW AND HIS HEART RATE IS ELEVATED, HIS CARDIAC STATUS IS NOT STRONG ENOUGH TO DEAL WITH LARGE VOLUMES OF IV FLUIDS, AND WE ARE AT A VERY DIFFICULT PLACE FAR TREATMENT OF LARA IS CONCERNED. AFTER DISCUSSING WITH PT'S AND THE PATIENT HIMSELF, HE UNDERSTANDS THE RAMIFICATIONS OF HIS DECISION DOES THE PT 'S SPOUSE AND THEY WANT TO PURSUE COMFORT CARE IN THE HOSPITAL. PT TO BE TRANSFERRED TO 4TH FLOOR ON COMFORT CARE Diagnosis/Problems: Clinical Quality Measures DVT/VTE Risk/Contraindication: Risk Factor Score Per Nursin RFS Level Per Nursing on Admit: 4+=Very High THA FRAGA MD Sep 16, 2016 07:15
[2016-09-16 08:00] VITALS: BP 98/78
[2016-09-16] MEDS: ZINC OXIDE 16% OINT (BUTT PASTE) 113 GM TUBE TOP SCH (08:04)
[2016-09-16] MEDS: LEVOFLOXACIN 500 MG/100 ML IV 100 ML IV SCH (08:04)
[2016-09-16] MEDS: ASPIRIN 325 MG (5 GR) TABLET PO SCH (08:04)
[2016-09-16] MEDS: ENOXAPARIN 60 MG/0.6 ML (LOVENOX) SYR SC SCH (08:04)
--- NOTE | 2016-09-16 08:45 | Physician Query-General Query ---
Physician Query-General Query to Physician: For coding clarification: Please specify stage 1 thru 4 or unstageable for pressure ulcer of coccyx. Thank you. PHYSICIAN RESPONSE: Based on the clinical findings in the record, please respond to the query above on this document as an addendum. Possible, probable, or questionable diagnosis can be coded for INPATIENTS ONLY. Physician Response: Physician Response Unstageable If you have questions please contact: Warehouse Order Picker:Tamara Vanegas CCS,CCDS Ext:[phone] Thank you for your time and cooperation. Clinical Book Canvasser/Warehouse Order Picker This is a permanent part of the medical record TAMARA VANEGAS Sep 16, 2016 08:45 KILEY WRAY MD Sep 16, 2016 17:26
--- NOTE | 2016-09-16 08:57 | Physician Query-Heart Failure ---
Physician Query-Heart Failure Query to Physician: Provider's Document Request-Please contact relay operator listed on document for more information. Dear Provider, We need your assistance to accurately capture the severity of the patients heart failure. Physician participation is requested in all cases of slurry tank operator uncertainty to minimize errors in code assignment and to avoid compliance issues. Please select the type of heart failure the patient has below. Clinical Findings: Pro-BNP 244.5 rising to 302.0. Treatment given: IV Lasix Type of Heart Failure: Type of Heart Failure: No Heart Failure If you have questions please contact: Dry Kiln Worker:Tamara Vanegas [facility] Ext:[phone] Thank you for your time and cooperation. Clinical Historic Preservationist/Dry Kiln Worker This is a permanent part of the medical record TAMARA VANEGAS Sep 16, 2016 08:57 Cathy RUGGIERO MD Sep 29, 2016 12:21
[2016-09-16] MEDS ORDERED: PROMETHAZINE INJ 25 MG/ML (PHENERGAN) AMP IVP PRN (11:15)
[2016-09-16] MEDS ORDERED: ACETAMINOPHEN 650 MG SUPP (TYLENOL) PR PRN (11:15)
[2016-09-16] MEDS ORDERED: morphine INJ 4 MG/ML 1 ML (VIAL/SYRINGE) IV PRN (11:15)
[2016-09-16] MEDS ORDERED: GLYCOPYRROLATE 0.2 MG/ML (ROBINUL) 2 ML VIAL IV PRN (11:15)
[2016-09-16] MEDS ORDERED: BISACODYL 10 MG SUPP (DULCOLAX) PR PRN (11:15)
[2016-09-16] MEDS ORDERED: ONDANSETRON 4 MG/2 ML (SDV) Z0FRAN IVP PRN (11:15)
[2016-09-16] MEDS ORDERED: ARTIFICAL TEARS 0.4 ML UNIT DOSE (REFRESH PLUS) OU PRN (11:15)
[2016-09-16] MEDS ORDERED: SALIVA STIMULANT MOUTH SPRAY (BIOTENE) 1.5 OZ MM PRN (11:15)
[2016-09-16] MEDS ORDERED: LORazepam INJ 2 MG/ML (ATIVAN) VIAL IVP PRN (11:15)
[2016-09-16 12:00] VITALS: BP 96/68
--- NOTE | 2016-09-16 13:58 | Cardiology Progress Note ---
Cardiology SOAP Progress Note Subjective: no chest pain Objective: I&O/Vital Signs Vital Sign - Last 12Hours 09/16/16 09/16/16 09/16/16 09/16/16 04:00 04:00 07:00 07:55 Temp 98.3 Pulse 103 110 Resp 21 B/P 92/58 Pulse Ox 93 O2 Delivery Room Air Room Air Room Air 09/16/16 09/16/16 09/16/16 09/16/16 08:00 08:00 08:00 12:00 Temp 97.5 Pulse 118 Resp 14 B/P 98/78 Pulse Ox 96 96 96 96 O2 Delivery Room Air Room Air Room Air Room Air 09/16/16 12:00 Temp 98.0 Pulse 121 Resp 16 B/P 96/68 Pulse Ox 96 O2 Delivery Room Air Intake and Output 09/16/16 00:00 Intake Total 950 ml Output Total 400 ml Balance 550 ml Weight (Pounds): 145 Weight (Ounces): 9.0 Weight (Calculated Kilograms): 65.216700 Constitutional: No appears stated age, No AAO x 3, No apparent distress, No PERRL, No well-developed, No well-nourished, No other Respiratory: No accessory muscle use, No respiratory distress, No chest tender , No chest expansion is symmetric, No chest is bilaterally symmetric, No lungs clear to percussion, No lungs clear to auscultation, No crackles, No rhonchi, No rales, No stridor, No wheezing, No pleural rub, No other Cardiovascular: No regular rate-rhythm, No irregularly irregular, No extra beats, No parasternal heave is noted, No JVD, No edema, No bradycardia, No tachycardia, No point of maximal impulse, No cardiac thrills are palpable, No S1 and S2, No gallop/S3, No gallop/S4, No diastolic murmur, No systolic murmur, No friction rub, No click, No other Gastrointestional: No tender, No soft, No round, No distended, No pulsatile mass, No organomegaly, No guarding, No rebound, No tenderness, No hernia, No mass, No audible bowel sounds, No abnormal bowel sounds, No abdominal bruits, No spleenomegaly, No other Extremities: wound Neurologic/Psychiatric: No gallery director II-XII nml as tested, No no motor/sensory deficits, No alert, No normal mood/affect, No oriented x 3, No abnormal cerebellar tests, No abnormal gallery director II-XII, No abnormal gait, No aphasia, No EOM palsy, No facial droop, No motor weakness, No sensory deficit, No depressed affect, No disoriented x 3, No other, No grossly intact, No power is 5/5 both on sides Skin: No normal color, No warm/dry, No cyanosis, No cool, No diaphoresis, No damp, No ecchymosis, No jaundice, No mottled, No pallor, No rash, No tattoos/ piercings, No ulcerations, No rash on exposed areas, No ulcerations on exposed areas, No other Results/Procedures: Labs Laboratory Tests 09/16/16 03:35: Anion Gap 9, BUN/Creatinine Ratio 26, Blood Urea Nitrogen 23H, Calcium Level 7.0L, Carbon Dioxide Level 20L, Chloride Level 99, Creatinine 0.90, Estimat Glomerular Filtration Rate > 60, Glucose Level 114H, Hematocrit 27L, Hemoglobin 9.3L, Mean Corpuscular Hemoglobin 32, Mean Corpuscular Hemoglobin Concent 34, Mean Corpuscular Volume 93, Mean Platelet Volume 9.7, Platelet Count 224, Potassium Level 3.6, Red Blood Count 2.89L, Red Cell Distribution Width 14.9H, Sodium Level 128L, White Blood Count 8.4 Microbiology 09/12/16 Urine Culture - Final, Complete Enterococcus Faecalis Providencia Alcalifaciens 1-2 A/P: Assessment/Dx: nstemi, infected sacral ulcers Plan: I defer treatment of sacral ulcer and possible infection to Dr. Funk. medical management of NSTEMI. I am told by the family and RN about decision to pursue hospice care. Cathy RUGGIERO MD Sep 16, 2016 13:58
[2016-09-17] VITALS: BP 116/68
--- NOTE | 2016-09-17 09:24 | Progress Note (SOAP) ---
Subjective Subjective/Events-last exam PT REPORTS FEELING FATIGUED, OVERALL NOT FEELING LIKE HE IS REALLY IMPROVING AND FEELS LIKE HE IS DYING - HE REPORTS THAT HE JUST WANTS TO BE ALLOWED TO GO HOME TO PASS. Review of Systems General: Fatigue Malaise HEENT: No Head Aches Pulmonary: Dyspnea Cardiovascular: : Edema: Paroxysmal Noc. DyspneaNo: Chest Pain Gastrointestinal: No: Nausea Genitourinary: Incontinence Neurological: : Weakness Objective Exam Vital Signs Date Time Temp Pulse Resp B/P Pulse Ox O2 Delivery O2 Flow Rate FiO2 09/17/16 00:00 96.4 81 16 116/68 94 Room Air 09/16/16 21:00 95 Room Air 09/16/16 19:40 97 Room Air 09/16/16 16:00 96 Room Air 09/16/16 14:00 96 Room Air 09/16/16 13:00 98 09/16/16 12:00 98.0 121 16 96/68 96 Room Air 09/16/16 12:00 96 Room Air I & O 09/17/16 07:00 Intake Total 1073 ml Output Total 150 ml Balance 923 ml Capillary Refill : Less Than 3 Seconds General Appearance: Mild Distress Thin Neck: Full Range of Motion Respiratory: Chest Non Tender Decreased Breath Sounds Cardiovascular: Regular Rate, Rhythm Systolic Murmur Gastrointestinal: normal bowel sounds non tender soft no organomegaly no pulsatile mass Extremity: Pedal Edema Neurologic/Psychiatric: Alert Normal Mood/Affect Other (ORIENTED TO PERSON) Skin: Warm/Dry Lymphatic: No Adenopathy Results Lab Microbiology 09/12/16 Urine Culture - Final, Complete Enterococcus Faecalis Providencia Alcalifaciens 1-2 Assessment/Plan Assessment/Plan Assess & Plan/Chief Complaint ACUTE NON-ST ELEVATION LA ATRIAL FIBRILLATION DIARRHEA COCCYGEAL PRESSURE ULCER URINARY TRACT INFECTION NON ST LA WITH AFIB - PT HAS REPORTED THAT HE DOES NOT WANT ANY MORE INTERVENTIONS, NO MORE TREATMENTS. HE REPORTS THAT HE WOULD LIKE TO GO HOME IF POSSIBLE AND START ON HOSPICE/COMFORT CARE. DIARRHEA COCCYGEAL ULCER - PROTECTION FROM DIARRHEAL STOOLS, WOUND CARE HAS MADE SPECIFIC RECOMMENDATIONS URINARY TRACT INFECTION - STOP ROCEPHIN AND START ON LEVAQUIN FOR TREATMENT OF URINARY TRACT INFECTION. [phone] - DAUGHTER YEYO'S PHONE NUMBER DISCUSSED WITH PATIENT'S ON 09/15/16 - ADVISED HER THAT LARA IS NOT RESPONDING WELL TO OUR TREATMENT, HIS BLOOD PRESSURE IS EXTREMELY LOW AND HIS HEART RATE IS ELEVATED, HIS CARDIAC STATUS IS NOT STRONG ENOUGH TO DEAL WITH LARGE VOLUMES OF IV FLUIDS, AND WE ARE AT A VERY DIFFICULT PLACE FAR TREATMENT OF LARA IS CONCERNED. AFTER DISCUSSING WITH PT'S AND THE PATIENT HIMSELF, HE UNDERSTANDS THE RAMIFICATIONS OF HIS DECISION DOES THE PT 'S SPOUSE AND THEY WANT TO PURSUE COMFORT CARE IN THE HOSPITAL. PT TO BE TRANSFERRED TO 4TH FLOOR ON COMFORT CARE Diagnosis/Problems: Clinical Quality Measures DVT/VTE Risk/Contraindication: Risk Factor Score Per Nursin RFS Level Per Nursing on Admit: 4+=Very High THA FRAGA MD Sep 17, 2016 09:24
[2016-09-17] MEDS: FLUTICASONE NASAL SPRAY (FLONASE) 16 GM BTL NS SCH (10:35)
[2016-09-18] MEDS: FLUTICASONE NASAL SPRAY (FLONASE) 16 GM BTL NS SCH (08:51)
--- NOTE | 2016-09-18 09:24 | ECHOCARDIOGRAPHY REPORT ---
PROCEDURE PHYSICIAN: MARCELLO RUGGIERO DATE OF PROCEDURE: 09/14/2016 TWO DIMENSIONAL ECHOCARDIOGRAM REPORT PRIMARY PHYSICIAN: OTHER PHYSICIAN: REFERRING PHYSICIAN: ORDERING PHYSICIAN: ATTENDING PHYSICIAN: Dr. Walsh FAMILY PHYSICIAN: READING PHYSICIAN: INDICATION FOR THE PROCEDURE: 1. Atrial fibrillation. 2. Chest pain. MEASUREMENTS DERIVED VALUES LV DIAMETER (LAX) NORMALS NORMALS Diastolic (3.6-5.2) Eject. Fract. (60%+/-6%) Systolic (2.3-3.9) Diastolic Vol. % Shortening (0.22-0.42) Systolic Vol. Aortic Root IVS THICKNESS Diastolic (0.6-1.1) LVPW THICKNESS Diastolic (0.6-1.1) LA DIAMETER Systolic (2.1-3.7) FINDINGS: 1. Atrial fibrillation. 2. Left atrial diameter is enlarged. Left atrial diameter is 4.4 cm. 3. Aortic root is normal. 4. LV systolic function is preserved. LV EF is 70%. There is no LVH. 5. RV size and function is normal. 6. There is no pericardial effusion. 7. Diastolic evaluation was not performed atrial fibrillation. 8. IVC is normal. VALVULAR STRUCTURE OF THE HEART: 1. There is sclerotic aortic valve with mild aortic insufficiency. There is no stenosis. 2. The mitral valve is thickened with no significant regurgitation or stenosis. 3. There is mild tricuspid regurgitation with RVSP of 30 mmHg. 4. Pulmonic valve is not well visualized. CONCLUSION: 1. LV size and function is normal. 2. LV EF is 70%. 3. The left atrium enlargement is noted. 4. There is no significant valvular heart disease. Job ID: [id number] Dictated Date: 09/17/2016 20:49:48 Hand Sprayer Date: 09/18/2016 09:21:25 / kendy
--- NOTE | 2016-09-18 10:43 | Discharge Summary ---
Diagnosis/Chief Complaint Date of Admission Sep 12, 2016 at 18:34 Date of Discharge Admission Diagnosis Admission Diagnosis atrial fibrillation. Elevated troponin. Weakness. Alzheimer's. Hyponatremia. History of CHF Discharge Diagnosis ACUTE NON-ST ELEVATION [place] ATRIAL FIBRILLATION DIARRHEA COCCYGEAL PRESSURE ULCER URINARY TRACT INFECTION Reason Hospital Visit patient was brought to the emergency room by EMS. - PER FAMILY HE HAS BEEN PERSISTENTLY SHORT OF BREATH, INCREASED FATIGUE AND LARGE WOUND ON HIS COCCYX Discharge Summary Discharge Physical Examination Allergies: Coded Allergies: NKANo Known Allergies (Verified Allergy, Unknown, 11/16/06) Vitals & I&Os General Appearance: Alert, Cooperative HEENT: Atraumatic Respiratory: Other (DECREASED AIR MOVEMENT THROUGHOUT) Cardiovascular: Other (IRREGULARLY IRREGULAR) Abdominal: Normal Bowel Sounds, Soft Extremities: Other (EDEMA) Skin: Other (Sacral ulcer, 14.0 x 11.5 x 0.5 cm, central soft black eschar, surrounding butterfly of partial tickness loss. Moderate bloody drainage.) Psych/Mental Status: Mental Status NL Hospital Course ACUTE NON-ST ELEVATION [place] ATRIAL FIBRILLATION DIARRHEA COCCYGEAL PRESSURE ULCER URINARY TRACT INFECTION NON ST TN WITH AFIB - PT HAS DECIDED FOR COMFORT CARE - TO BE DISCHARGED TO HOME AND FAMILY HAS DECIDED FOR HOSPICE DIARRHEA - SUPPORTIVE CARE. COCCYGEAL ULCER - SUPPORTIVE CARE, WOUND CARE HAS SEEN PT, RECOMMENDED TREATMENT TO CONTINUE FOR COMFORT URINARY TRACT INFECTION - STOPPED TREATMENT PER FAMILY AND PATIENT REQUEST. DISHCARGE TO HOME ON HOSPICE. Discharge Condition at discharge PROGRESSIVE DECLINE Instructions to patient/family Please see electonic discharge instructions given to patient. Discharge Medications Reviewed and agree with Discharge Medication list on patient's Discharge Instruction sheet Clinical Quality Measures DVT/VTE Risk/Contraindication: Risk Factor Score Per Nursin RFS Level Per Nursing on Admit: 4+=Very High THA FRAGA MD Sep 18, 2016 10:43
[2016-09-18] MEDS ORDERED: BISA10SU12 PR (10:47)
[2016-09-18] MEDS ORDERED: LORA2VIA29 PO (10:47)
[2016-09-18] MEDS ORDERED: MORP100S3 PO (10:47)
[2016-09-18] MEDS ORDERED: SALI45SP MM (10:47)
[2016-09-18 17:18] VITALS: BP 116/68
[2016-10-13] MEDS ORDERED: cefTRIAXone INJECTION 1,000 MG in NORMAL SALINE (BAXTER MINI) 50 ML IV SCH (23:00)
== END 2016-09-18 17:27 | disposition hospice, home (50) | DRG 281 ==
LOC: EDUNIT# 16:53 → ER 16:53 → ICU 18:34 → 4TH 09-16 13:30
PROVIDERS: ADMIT Family Medicine; ATTEND Family Medicine
DX: I21.4 Non-ST elevation (NSTEMI) myocardial infarction (principal); E87.1 Hypo-osmolality and hyponatremia; L89.150 Pressure ulcer of sacral region, unstageable; N39.0 Urinary tract infection, site not specified; I48.2 Chronic atrial fibrillation; I10 Essential (primary) hypertension; Z66 Do not resuscitate; Z51.5 Encounter for palliative care; E87.6 Hypokalemia; G30.9 Alzheimer's disease, unspecified; F02.80 Dementia in other diseases classified elsewhere, unspecified severity, without behavioral disturbance, psychotic disturbance, mood disturbance, and anxiety; I25.10 Atherosclerotic heart disease of native coronary artery without angina pectoris; R19.7 Diarrhea, unspecified; R29.810 Facial weakness; F10.20 Alcohol dependence, uncomplicated; Z91.14 Patient's other noncompliance with medication regimen; Z87.891 Personal history of nicotine dependence; N40.1 Benign prostatic hyperplasia with lower urinary tract symptoms; R32 Unspecified urinary incontinence
CPT/HCPCS: 36415; 70450; 71010; 80048; 80053; 80320; 81000; 83605; 83880; 84484; 85025; 85027; 87077; 87088; 87186; 87324; 87449; 93005; 93306; 94760